=== PATIENT | female | born 1950 ===

== ENCOUNTER 2018-01-24 09:09 | Emergency (ER) | payer SELFPAY ==
[2018-01-24] MEDS ORDERED: Sodium Chloride 0.9% 1,000 ML IV ONE (10:26)
--- NOTE | 2018-01-24 10:27 | C.PDOC ---
History Of Present Illness 68yo female, originally from the [place] and visiting for 2 weeks, presents to ED complaining of 5 day left sided abdominal pain. Patient states the pain has been worsening and is worse on the left lower quadrant. She reports associated nausea and and normal bowel movements but with small amounts of stool. She denies any vomiting, diarrhea, fever, chills, dysuria, or bloody stools. She states she has a history of diverticulitis and 2 years ago had "ruptured colon" which needed surgery. She has no other medical complaints. Time Seen by Provider: 01/24/18 10:07 Chief Complaint (Nursing): Abdominal Pain History Per: Patient History/Exam Limitations: no limitations Onset/Duration Of Symptoms: Days (5) Current Symptoms Are (Timing): Still Present Location Of Pain/Discomfort: LUQ, LLQ Quality Of Discomfort: "Pain" Associated Symptoms: Nausea. denies: Fever, Chills, Vomiting, Diarrhea, Urinary Symptoms Additional History Per: Patient Abnormal Vaginal Bleeding: No Past Medical History Reviewed: Historical Data, Nursing Documentation, Vital Signs Vital Signs: Last Vital Signs Temp 98.2 F 01/24/18 13:39 Pulse 80 01/24/18 13:39 Resp 16 01/24/18 13:39 BP 142/80 01/24/18 13:39 Pulse Ox 99 01/24/18 13:39 - Medical History PMH: No Chronic Diseases Surgical History: No Surg Hx Family History: States: No Known Family Hx - Social History Hx Alcohol Use: No Hx Substance Use: No - Immunization History Hx Tetanus Toxoid Vaccination: No Hx Influenza Vaccination: No Review Of Systems Except As Marked, All Systems Reviewed And Found Negative. Constitutional: Negative for: Fever, Chills Gastrointestinal: Positive for: Nausea, Abdominal Pain. Negative for: Vomiting , Diarrhea, Hematochezia Genitourinary: Negative for: Dysuria Physical Exam - Physical Exam Appears: Non-toxic, No Acute Distress Skin: Normal Color, Warm, Dry Head: Atraumatic, Normacephalic Eye(s): bilateral: Normal Inspection Oral Mucosa: Moist Neck: Normal ROM, Supple Chest: Symmetrical Cardiovascular: Rhythm Regular Respiratory: Normal Breath Sounds Gastrointestinal/Abdominal: Soft, Tenderness (left upper and lower quadrant tenderness), No Mass, No Guarding, No Rebound, Other (large ventral surgical scar) Back: Normal Inspection Extremity: Normal ROM Neurological/Psych: Oriented x3 ED Course And Treatment - Laboratory Results Result Diagrams: 01/24/18 10:37 01/24/18 10:37 Lab Interpretation: No Acute Changes O2 Sat by Pulse Oximetry: 100 (RA) Pulse Ox Interpretation: Normal - CT Scan/US abdomen Other Rad Studies (CT/US): Read By Radiologist, Radiology Report Reviewed CT/US Interpretation: Accession No. : [id number]. Patient Name / ID : CHANDRIKA WORKMAN / [id number]. Exam Date : 01/24/2018 12:16:26 ( Approved ). Study Comment : Sex / Age : F / 68Y. Creator : Elizabeth Glass. Dictator : Avtar Valladares MD. Home Worker : Medical Technologist : Avtar Valladares MD. Approver2 : Report Date : 01/24/2018 12:24:57. My Comment : . PROCEDURE: CT Abdomen and Pelvis with contrast. HISTORY: LLQ abd pain. COMPARISON: None. TECHNIQUE: Following the intravenous administration of iodinated contrast material, a CT examination of the abdomen and pelvis performed from the domes of the diaphragms to the symphysis pubis with reformatted datasets provided not only axial but also sagittal and coronal planes. Oral contrast was not administered as per referring physician request. Contrast dose: Visipaque 320, 100 cc. Radiation dose: Total exam DLP = 600.09 mGy-cm. This CT exam was performed using one or more of the following dose reduction techniques: Automated exposure control, adjustment of the mA and/or kV according to patient size, and/or use of iterative reconstruction technique. FINDINGS: LOWER THORAX : Unremarkable. LIVER: Unremarkable. No gross lesion or ductal dilatation. GALLBLADDER AND BILE DUCTS: Gallbladder is quite distended but thin walled without radiodense cholelithiasis or pericholecystic fluid collection. Clinically correlate nevertheless. PANCREAS: Unremarkable. No gross lesion or ductal dilatation. SPLEEN: Unremarkable. ADRENALS: Unremarkable. No mass. KIDNEYS AND URETERS: There is bilateral hydronephrosis somewhat greater the right than left sides. This is apparently due to a 1.2 x 1.1 cm calculus obstructing the left ureteropelvic junction with a 6.7 x 5.4 mm calculus obstructing the junction of the middle and distal thirds of the right ureter. Mild right hydronephrosis results. Urinary bladder appears unremarkable. VASCULATURE: Unremarkable. No aortic aneurysm. BOWEL: Thumb was collapsed and poorly evaluated however there is prominence of the gastric campa, particularly the antrum which may reflect gastritis. Clinically correlate further. The bowel is not appear obstructed. No mesenteric edema is associated with the colon or small bowel with no bowel obstruction pattern appreciated. Anastomotic suture line is identified at the mid sigmoid colon which is otherwise unremarkable appearing but partially obscured by stool. Mild fecal loading is seen at the proximal to mid large-bowel. A small hernia is appreciate soda left lower quadrants probable colostomy reversal containing only mesenteric fat at this time. No bowel involvement. No colonic diverticular changes identified. APPENDIX: Normal appendix. PERITONEUM: Unremarkable. No free fluid. No free air. LYMPH NODES: Unremarkable. No enlarged lymph nodes. BLADDER: Please see renal section above. REPRODUCTIVE: Unremarkable. BONES: No acute fracture. OTHER FINDINGS: None. IMPRESSION: 1. Bilateral hydronephrosis is appreciated with a 6.7 mm calculus obstructing the distal right ureter and 1.2 cm calculus obstructing left ureteropelvic junction. 2. Segmental resection with unremarkable appearing anastomotic suture line at the sigmoid colon. No bowel obstruction, mesenteric edema or ascites. A small incisional hernia is is appreciated the left lower quadrant likely at colostomy reversal site. Clinically correlate. No bowel involvement. 3. No colonic diverticular changes. 4. Potential gastritis. Evaluation of stomach is compromised by lack of oral contrast and near complete collapse of the stomach. Medical Decision Making Medical Decision Making: Impression: abdominal pain Plan: -- Labs -- Urinalysis -- CT Abdomen/Pelvis w/ IV Contrast -- Morphine 4mg IV -- IV Fluids -- Reglan 10mg IV Progress: Labs reviewed with no leukcytosis or electrolyte abnormality. Urine has + nitrates, leukocytes. Will treat with Bactrim DS and urine culture sent to lab. Patient re-evaluated and reports feeling better. She has no fever and stable vital signs. Abdomen soft and non-distended. Patient informed of lab and CT findings. Patient stable for discharge with Rx Bactrim Disposition Counseled Patient/Family Regarding: Diagnosis, Need For Followup, Rx Given - Disposition Referrals: [facility] [Outside] [facility] [Outside] Disposition: HOME/ ROUTINE Disposition Time: 13:09 Condition: GOOD Additional Instructions: You have bladder infection and must take antibiotic twice a day follow up in the clinic Usted tiene infeccin de la vejiga y debe carlos antibiticos dos veces al da seguimiento en la clnica Prescriptions: Sulfamethoxazole/Trimethoprim [Bactrim DS 800 mg-160 mg] 1 tab PO BID #14 tab Instructions: Urinary Tract Infection, Adult (DC) Forms: [employer] (Faroese) Print Language: SYRIAC - POA Present On Arrival: None - Clinical Impression Clinical Impression: Cystitis, Abdominal pain - PA / PUBLIC WORKS TECHNICIAN / Resident Statement MD/DO has reviewed & agrees with the documentation as recorded. - Scribe Statement The provider has reviewed the documentation as recorded by the Scribe (La Mcarthur) Provider Attestation: All medical record entries made by the Scribe were at my direction and personally dictated by me. I have reviewed the chart and agree that the record accurately reflects my personal performance of the history, physical exam, medical decision making, and the department course for this patient. I have also personally directed, reviewed, and agree with the discharge instructions and disposition.
[2018-01-24 10:40] LABS: BASO # 0.1 K/uL (0.0-0.2); BASO % 1.2 % (0.0-2.0); EOS # 0.1 K/uL (0.0-0.7); EOS % 1.2 % (0.0-4.0); HEMOGLOBIN 13.3 g/dL (11.0-16.0); LYMPH # 1.7 K/uL (1.0-4.3); LYMPH % 37.5 % (20.0-40.0); MEAN CELL VOLUME 84.8 fL (81.0-99.0); MEAN CORPUSCULAR HEMOGLOBIN 29.8 pg (27.0-31.0); MEAN CORPUSCULAR HGB CONC 35.2 g/dL (33.0-37.0); MEAN PLATELET VOLUME 8.3 fL (7.2-11.7); MONO # 0.4 K/uL (0.0-0.8); MONO % 9.1 % (0.0-10.0); NEUT # 2.3 K/uL (1.8-7.0); RBC 4.46 Mil/uL (3.80-5.20); RED CELL DISTRIBUTION WIDTH 14.5 % (11.5-14.5); WHITE BLOOD COUNT 4.6 K/uL (4.8-10.8)
[2018-01-24] MEDS ORDERED: Morphine 4 MG/ML VIAL ONE (10:43)
[2018-01-24] MEDS ORDERED: Sodium Chloride 0.9% 1,000 ML ONE (10:43)
[2018-01-24 10:52] LABS: ALB/GLOB RATIO 1.2 (1.0-2.1); ALBUMIN 4.4 g/dL (3.5-5.0); ALT/SGPT 14 U/L (9-52); AST/SGOT 18 U/L (14-36); BLOOD UREA NITROGEN 23 mg/dL (7-17); CALCIUM 9.7 mg/dl (8.6-10.4); GFR AFRICAN-AMERICAN > 60; GFR NON-AFRICAN AMERICAN > 60; LIPASE 104 U/L (23-300)
[2018-01-24] MEDS ORDERED: Iodixanol 320 MG/ML 100 ML BOTTLE IV ONE (12:04)
[2018-01-24 12:43] LABS: SQUAMOUS EPITHIAL 19 /hpf (0-5); URINE BACTERIA RARE (<OCC); URINE BILIRUBIN NEGATIVE (NEGATIVE); URINE BLOOD 2+ (NEGATIVE); URINE CLARITY Hazy (Clear); URINE COLOR Yellow (YELLOW); URINE GLUCOSE (UA) NORMAL (Normal); URINE LEUKOCYTE ESTERASE 3+ Leu/uL (Negative); URINE PROTEIN 1+ mg/dL (NEGATIVE); URINE UROBILINOGEN NORMAL mg/dL (0.2-1.0)
--- NOTE | 2018-01-24 13:05 | CT ---
PROCEDURE: CT Abdomen and Pelvis with contrast HISTORY: LLQ abd pain COMPARISON: None. TECHNIQUE: Following the intravenous administration of iodinated contrast material, a CT examination of the abdomen and pelvis performed from the domes of the diaphragms to the symphysis pubis with reformatted datasets provided not only axial but also sagittal and coronal planes. Oral contrast was not administered as per referring physician request. Contrast dose: Visipaque 320, 100 cc Radiation dose: Total exam DLP = 600.09 mGy-cm. This CT exam was performed using one or more of the following dose reduction techniques: Automated exposure control, adjustment of the mA and/or kV according to patient size, and/or use of iterative reconstruction technique. FINDINGS: LOWER THORAX: Unremarkable. LIVER: Unremarkable. No gross lesion or ductal dilatation. GALLBLADDER AND BILE DUCTS: Gallbladder is quite distended but thin walled without radiodense cholelithiasis or pericholecystic fluid collection. Clinically correlate nevertheless. PANCREAS: Unremarkable. No gross lesion or ductal dilatation. SPLEEN: Unremarkable. ADRENALS: Unremarkable. No mass. KIDNEYS AND URETERS: There is bilateral hydronephrosis somewhat greater the right than left sides. This is apparently due to a 1.2 x 1.1 cm calculus obstructing the left ureteropelvic junction with a 6.7 x 5.4 mm calculus obstructing the junction of the middle and distal thirds of the right ureter. Mild right hydronephrosis results. Urinary bladder appears unremarkable. VASCULATURE: Unremarkable. No aortic aneurysm. BOWEL: Thumb was collapsed and poorly evaluated however there is prominence of the gastric campa, particularly the antrum which may reflect gastritis. Clinically correlate further. The bowel is not appear obstructed. No mesenteric edema is associated with the colon or small bowel with no bowel obstruction pattern appreciated. Anastomotic suture line is identified at the mid sigmoid colon which is otherwise unremarkable appearing but partially obscured by stool. Mild fecal loading is seen at the proximal to mid large-bowel. A small hernia is appreciate soda left lower quadrants probable colostomy reversal containing only mesenteric fat at this time. No bowel involvement. No colonic diverticular changes identified. APPENDIX: Normal appendix. PERITONEUM: Unremarkable. No free fluid. No free air. LYMPH NODES: Unremarkable. No enlarged lymph nodes. BLADDER: Please see renal section above. REPRODUCTIVE: Unremarkable. BONES: No acute fracture. OTHER FINDINGS: None. IMPRESSION: 1. Bilateral hydronephrosis is appreciated with a 6.7 mm calculus obstructing the distal right ureter and 1.2 cm calculus obstructing left ureteropelvic junction. 2. Segmental resection with unremarkable appearing anastomotic suture line at the sigmoid colon. No bowel obstruction, mesenteric edema or ascites. A small incisional hernia is is appreciated the left lower quadrant likely at colostomy reversal site. Clinically correlate. No bowel involvement. 3. No colonic diverticular changes. 4. Potential gastritis. Evaluation of stomach is compromised by lack of oral contrast and near complete collapse of the stomach.
[2018-01-24] MEDS ORDERED: Tmp-Smz 800 mg-160 mg DS Tab ONE (13:15)
[2018-01-24] MEDS ORDERED: Tmp-Smz 800 mg-160 mg DS Tab PO SCH (13:15)
[2018-01-24 13:41] VITALS: BP 142/80; PULSE 80; RESP 16; TEMP 98.2
[2018-01-24 15:51] VITALS: O2SAT 100
== END 2018-01-24 13:39 | disposition home or self-care (01) ==
LOC: C.ER 09:09
DX: N30.90 Cystitis, unspecified without hematuria (principal); R10.32 Left lower quadrant pain
CPT/HCPCS: 74177; 80053; 81001; 83690; 85025; 87086; 96361; 96374; 96375; 99285; J2270; J2765; J7030; Q9967

== ENCOUNTER 2018-03-11 14:44 | Inpatient (IN) | payer OTHER ==
[2018-03-11 14:55] VITALS: BMI 30.2
[2018-03-11] MEDS ORDERED: Iohexol 240 (50 ml) PO ONE (15:39)
--- NOTE | 2018-03-11 15:46 | C.PDOC ---
History Of Present Illness Pt is a 68 year old female patient with PMHx of kidney stones, HTN, hypothyroidism, TIA, DM, diverticulitis and PSHx of colon resection for the diverticulitis presents to the ER with c/o LLQ abdominal pain that radiates to the lower back. Patient states that the pain is sharp, intermittent, and is a 7/ 10 at the moment. Patient notes that eating and constipation exacerbate her pain. Patient denies nausea, vomiting, diarrhea and fever. Patient reports she is here on vacation from [facility]. PMD: In the [facility] Time Seen by Provider: 03/11/18 15:23 Chief Complaint (Nursing): Abdominal Pain History Per: Patient History/Exam Limitations: no limitations Location Of Pain/Discomfort: LLQ Associated Symptoms: Constipation (sometimes). denies: Fever, Nausea, Vomiting , Diarrhea Exacerbating Factors: Food, Other (constipation) Past Medical History Reviewed: Historical Data, Nursing Documentation, Vital Signs Vital Signs: Last Vital Signs Temp 98.0 F 03/11/18 14:54 Pulse 73 03/11/18 14:54 Resp 18 03/11/18 14:54 BP 93/64 L 03/11/18 14:54 Pulse Ox 100 03/11/18 18:10 - Medical History PMH: Diverticulitis, HTN, Hypothyroidism Other Surgeries: colon resection Family History: States: Diabetes - Social History Hx Tobacco Use: No Hx Alcohol Use: No Hx Substance Use: No - Immunization History Hx Tetanus Toxoid Vaccination: No Hx Influenza Vaccination: No Review Of Systems Except As Marked, All Systems Reviewed And Found Negative. Constitutional: Negative for: Fever Gastrointestinal: Positive for: Abdominal Pain (LLQ radiates to back), Constipation. Negative for: Nausea, Vomiting, Diarrhea Musculoskeletal: Positive for: Back Pain (lower back from LLQ pain) Physical Exam - Physical Exam Appears: Well, Non-toxic, No Acute Distress Skin: Normal Color, Warm, Dry, Other (+ surgical scars of abdomen) Head: Atraumatic, Normacephalic Eye(s): bilateral: Normal Inspection, EOMI Ear(s): Bilateral: Normal Nose: Normal Oral Mucosa: Moist Tongue: Normal Appearing Lips: Normal Appearing Neck: Normal ROM, Supple Lymphatic: Deferred Chest: Symmetrical, No Deformity Cardiovascular: Rhythm Regular Respiratory: Normal Breath Sounds, No Rales, No Rhonchi, No Wheezing Gastrointestinal/Abdominal: Bowel Sounds (slightly hyperactive), Soft, Tenderness (LLQ tenderness ), No Guarding, No Rebound, Other ((+) surgical scars ) Rectal: Deferred Back: No CVA Tenderness Extremity: Normal ROM (x4) Extremity: Bilateral: Atraumatic, Normal ROM Pulses: Left Radial: Normal, Right Radial: Normal Neurological/Psych: Oriented x3, Normal Speech, Normal Motor, Normal Sensation ED Course And Treatment - Laboratory Results Result Diagrams: 03/11/18 15:45 03/11/18 15:45 O2 Sat by Pulse Oximetry: 100 (RA) Pulse Ox Interpretation: Normal Medical Decision Making Medical Decision Making: Initial impression: LLQ pain Differential Diagnosis includes but is not limited to: diverticulitis, abdominal adhesions, pyelonephritis Initial Plan: -- EKG -- blood work -- Omnipaque -- pepcid -- toradol -- UA Progress Note(s): 5:39 PM - UA positive. Ceftriaxone ordered. Awaiting CT scan reading by radiology 6:15 PM - CT shows diverticulitis. Will admit. I endorsed case to Dr. Kevin Thomas (hospitalist) who advised to admit under Dr. George. Disposition Counseled Patient/Family Regarding: Studies Performed, Diagnosis - Disposition Disposition: HOSPITALIZED Disposition Time: 18:10 Condition: FAIR - POA Present On Arrival: None - Clinical Impression Clinical Impression: Diverticulitis, Pyelonephritis - Scribe Statement The provider has reviewed the documentation as recorded by the Ana Maria Sims Do Provider Attestation: All medical record entries made by the Morenitaibjuli were at my direction and personally dictated by me. I have reviewed the chart and agree that the record accurately reflects my personal performance of the history, physical exam, medical decision making, and the department course for this patient. I have also personally directed, reviewed, and agree with the discharge instructions and disposition. Decision To Admit - Pt Status Changed To: Hospital Disposition Of: Inpatient - Admit Certification Admit to Inpatient:: After my assessment, the patient will require hospitalization for at least two midnights. This is because of the severity of symptoms shown, intensity of services needed, and/or the medical risk in this patient being treated as an outpatient. - InPatient: Physician Admission Certification:: Pt with both pyelonephritis and diverticulitis and underlying diabetes (high risk factor). Will require IV abx - . Bed Request Type: Regular Admitting Physician: Jonathan George Patient Diagnosis: Diverticulitis, Pyelonephritis
[2018-03-11 15:49] LABS: BASO % 1.1 % (0.0-2.0); EOS # 0.1 K/uL (0.0-0.7); EOS % 1.4 % (0.0-4.0); HEMOGLOBIN 12.9 g/dL (11.0-16.0); LYMPH % 47.8 % (20.0-40.0); MEAN CELL VOLUME 87.6 fL (81.0-99.0); MEAN CORPUSCULAR HEMOGLOBIN 30.5 pg (27.0-31.0); MEAN CORPUSCULAR HGB CONC 34.8 g/dL (33.0-37.0); MEAN PLATELET VOLUME 8.3 fL (7.2-11.7); MONO # 0.3 K/uL (0.0-0.8); NEUT # 1.8 K/uL (1.8-7.0); NEUT % 42.7 % (50.0-75.0); NRBC % 0.1 % (0.0-2.0); RBC 4.24 Mil/uL (3.80-5.20); WHITE BLOOD COUNT 4.3 K/uL (4.8-10.8)
[2018-03-11] MEDS ORDERED: Iohexol 240 (50 ml) ONE (15:51)
[2018-03-11 15:57] LABS: INR 1.2; PROTHROMBIN TIME 12.6 SECONDS (9.7-12.2)
[2018-03-11 16:00] LABS: ALB/GLOB RATIO 1.3 (1.0-2.1); ALBUMIN 4.3 g/dL (3.5-5.0); ALT/SGPT 20 U/L (9-52); AST/SGOT 14 U/L (14-36); BLOOD UREA NITROGEN 22 mg/dL (7-17); CALCIUM 9.6 mg/dl (8.6-10.4); GFR AFRICAN-AMERICAN > 60; GFR NON-AFRICAN AMERICAN 55; LIPASE 117 U/L (23-300); SQUAMOUS EPITHIAL 1 /hpf (0-5); URINE BACTERIA MANY (<OCC); URINE BILIRUBIN NEGATIVE (NEGATIVE); URINE BLOOD 1+ (NEGATIVE); URINE CLARITY Hazy (Clear); URINE COLOR Yellow (YELLOW); URINE GLUCOSE (UA) NORMAL (Normal); URINE LEUKOCYTE ESTERASE 3+ Leu/uL (Negative); URINE PROTEIN 1+ mg/dL (NEGATIVE); URINE UROBILINOGEN NORMAL mg/dL (0.2-1.0); WBC CLUMPS FEW /hpf
[2018-03-11] MEDS ORDERED: cefTRIAXone IV 1 gm in Dextros 1 GM in Dextrose 5% In Water 50 ML IVPB STA (16:23)
[2018-03-11] MEDS ORDERED: Iodixanol 320 MG/ML 100 ML BOTTLE IV ONE (16:29)
[2018-03-11] MEDS ORDERED: cefTRIAXone IV 1 gm in Dextros 50 ML IVPB ONE (16:33)
[2018-03-11] MEDS ORDERED: Sodium Chloride 0.9% 1,000 ML IV ONE (17:40)
--- NOTE | 2018-03-11 17:57 | CT ---
Date of service: 03/11/2018 PROCEDURE: CT Abdomen and Pelvis with contrast HISTORY: LLQ Pain;hx diverticulitis colon colon resection COMPARISON: Comparison is made to the previous study dated 01/24/2018 TECHNIQUE: Contrast dose: 100 mL of Visipaque 320. Axial and reformatted coronal and sagittal CT images of the abdomen and pelvis were obtained after IV and oral contrast administration. Radiation dose: Total exam DLP = 519.21 mGy-cm. This CT exam was performed using one or more of the following dose reduction techniques: Automated exposure control, adjustment of the mA and/or kV according to patient size, and/or use of iterative reconstruction technique. FINDINGS: LOWER THORAX: No evidence of acute pathology LIVER: Unremarkable. No gross lesion or ductal dilatation. GALLBLADDER AND BILE DUCTS: No evidence of acute cholecystitis PANCREAS: Unremarkable. No gross lesion or ductal dilatation. SPLEEN: Unremarkable. ADRENALS: Unremarkable. No mass. KIDNEYS AND URETERS: Again seen is a 11 millimeter calculus at the left kidney pelvis associated with mild hydronephrosis. Interval resolving of the previously seen right hydronephrosis secondary to distal right ureter stone since the previous exam. VASCULATURE: Unremarkable. No aortic aneurysm. BOWEL: Unremarkable. No obstruction. NoThere is mild inflammatory changes adjacent to the proximal sigmoid colon suspicious for diverticulitis. No evidence of abscess formation. Large bowel anastomosis noted in the distal portion of the sigmoid. No evidence of high-grade bowel obstruction. There is left lateral abdominal wall ventral hernia contains small bowel loop without evidence of bowel obstruction or incarceration. APPENDIX: No evidence of appendicitis. PERITONEUM: Unremarkable. No free fluid. No free air. LYMPH NODES: Unremarkable. No enlarged lymph nodes. BLADDER: Unremarkable. REPRODUCTIVE: Unremarkable. BONES: No acute fracture. OTHER FINDINGS: None. IMPRESSION: Suspicious for mild diverticulitis at the proximal portion of the sigmoid colon in the left lower abdomen. Interval increase in the size of the left lateral abdominal wall ventral hernia contains short segment of small bowel loop since the previous exam without evidence of bowel incarceration or obstruction. Interval resolving of the previously seen moderate right hydronephrosis secondary to distal right ureter stone. 11 millimeters stone in the left renal pelvis again noted associated with [id number] left hydronephrosis.
[2018-03-11] MEDS ORDERED: metroNIDAZOLE IV 500 mg/100 ml 500 MG/100 ML BAG IV ONE (18:04)
[2018-03-11] MEDS ORDERED: metroNIDAZOLE IV 500 mg/100 ml 500 MG/100 ML BAG ONE (18:12)
[2018-03-11] MEDS: Meropenem 1 GM in Sodium Chloride 0.9% 100 ML IVPB SCH (19:30)
[2018-03-11] MEDS: Pantoprazole 40 mg EC Tab PO SCH (21:44)
--- NOTE | 2018-03-11 22:58 | CP.PCM.HP ---
<[place] Y - Last Filed: 03/11/18 23:08> History of Present Illness - History of Present Illness History of Present Illness: cc: abdominal pain Ms. Vidal is a 68 year old female PMH hypertension, hypothyroid, diverticulitis with colon resection complaining today of left lower quadrant pain x1 week. She began feeling the pain 1 week ago as an intermittent dull pain. It worsened to the point where she was bed bound yesterday, and then worsened at night when it became sharp. It's a squeezing pain the radiates to the back, worse after eating, and better if she applies pressure. Episodes last 5-10 minutes with varying number of episodes per day which she rates it 8/10 at its worst. She arrived from the [facility] on 12/28/17 and was seen at the [facility] ED 01/24/18 for a UTI which grew out E. Coli; she finished the week long course of Bactrim she was given. She admits chills, weakness, fatigue, chest pain, tachycardia, nausea during episodes of pain. She also notes that she has to strain in order to make bowel movements happen, although she admits to them in regular frequency. Denies fever, headache, dizziness, lightheadedness , changes in vision or hearing, sore throat, dysphagia, odynophagia, shortness of breath, diarrhea, back pain, swelling of hands or feet, changes in weight, changes in appetite. PMH: HTN, hypothyroid, diverticulitis with colon resection, nephrolithiasis Home Meds: Candesartan 32mg po daily, Levothyroxine 88mcg po daily, Levaquin 75mg po daily Allergies: NKA PSxH: colon resection 2015, bladder sling 1995, hemorrhoidectomy 1995 FamHx: Dad HepC- at 49, Mom PNA- at 81, Brother HepC-alive SocialHx: smokes 6-7 cigarettes/day, quit alcohol 10 years ago, denies illicit drugs. Lives at home with niece and her daughters, retired Full Code Niece: Camille Richardson Present on Admission - Present on Admission Any Indicators Present on Admission: No Review of Systems - Constitutional Constitutional: Chills, Fatigue, Headache, Lethargy, Weakness. absent: Anorexia , Daytime Sleepiness, Excessive Sweating, Fever, Frequent Falls, Increased Appetite, Snoring, Weight Gain, Weight Loss - EENT Eyes: absent: Blurred Vision, Change in Vision, Diplopia, Discharge, Irritation , Pain, Sees Flashes, Spots in Vision, Loss of Vision Ears: absent: Decreased Hearing, Tinnitus, Disequilibrium, Dizziness Nose/Mouth/Throat: absent: Nasal Congestion, Nasal Discharge, Dysphagia, Halitosis, Hoarsness, Mouth Pain, Odynophagia, Sore Throat, Throat Swelling - Cardiovascular Cardiovascular: Palpitations, Rapid Heart Rate. absent: Chest Pain, Chest Pain with Activity, Claudication, Diaphoresis, Dyspnea, Pain Radiating to Arm/Neck/ Jaw, Leg Edema, Lightheadedness, Pedal Edema, Radiating Pain, Syncope - Respiratory Respiratory: absent: Cough, Dyspnea, Wheezing, Chest Congestion - Gastrointestinal Gastrointestinal: Abdominal Pain, Constipation, Nausea. absent: Belching, Bloating, Change in Bowel Habits, Change in Stool Character, Coffee Ground Emesis, Cramping, Diarrhea, Dyspepsia, Dysphagia, Excessive Flatus, Heartburn, Hematemesis, Hematochezia, Melena, Odynophagia, Vomiting - Genitourinary Genitourinary: Urinary Frequency, Hx Renal/Bladder Calculi. absent: Difficulty Urinating, Dysuria, Flank Pain, Hematuria, Pyuria, Urinary Incontinence, Urinary Hesitance, Urinary Urgency - Musculoskeletal Musculoskeletal: Numbness, Tingling. absent: Arthralgias, Joint Swelling, Radiating Pain into Limb, Stiffness - Integumentary Integumentary: absent: Change in Pigmentation, Dry Skin, Rash, Sores, Swelling - Neurological Neurological: Numbness, Weakness. absent: Abnormal Hearing, Abnormal Movements , Convulsions, Disequilibrium, Dizziness, Syncope, Tingling - Psychiatric Psychiatric: absent: Confusion, Depression, Mood Swings - Endocrine Endocrine: absent: Cold Intolorance, Deepening of Voice, Heat Intolorance, Polydipsia, Polyphagia, Polyuria - Hematologic/Lymphatic Hematologic: absent: Easy Bleeding, Easy Bruising Past Patient History - Past Medical History & Family History Pertinent Family History: dad and brother HepC, mom PNA - Past Social History Smoking Status: Light Smoker < 10 Cigarettes Daily Alcohol: None Drugs: Denies - CARDIAC Hx Hypertension: Yes - PULMONARY Hx Respiratory Disorders: No - NEUROLOGICAL Hx Neurological Disorder: No - ENDOCRINE/METABOLIC Hx Hypothyroidism: Yes - MUSCULOSKELETAL/RHEUMATOLOGICAL Hx Falls: No - GASTROINTESTINAL Hx Diverticulitis: Yes - PSYCHIATRIC Hx Substance Use: No - SURGICAL HISTORY Hx Surgeries: Yes Other/Comment: Colon surgery 2 years ago - ANESTHESIA Hx Anesthesia: Yes Hx Anesthesia Reactions: No Meds Allergies/Adverse Reactions: Allergies Allergy/AdvReac Type Severity Reaction Status Date / Time No Known Allergies Allergy Verified 03/11/18 14:52 Physical Exam - Constitutional Appears: Non-toxic, No Acute Distress - Head Exam Head Exam: ATRAUMATIC, NORMOCEPHALIC - Eye Exam Eye Exam: EOMI, Normal appearance, PERRL - ENT Exam ENT Exam: Mucous Membranes Moist, Normal Exam - Respiratory Exam Respiratory Exam: Clear to Auscultation Bilateral, NORMAL BREATHING PATTERN. absent: Rales, Rhonchi, Wheezes - Cardiovascular Exam Cardiovascular Exam: REGULAR RHYTHM, +S1, +S2. absent: Gallop, Rubs, Systolic Murmur - GI/Abdominal Exam GI & Abdominal Exam: Hernia, Hyperactive Bowel Sounds, Normal Bowel Sounds, Soft. absent: Firm, Guarding, Tenderness Additional comments: midline scar from colectomy, umbilical hernia, scar from colostomy bag placement - Exam Exam: absent: Uretheral Discharge, Bladder Distension - Extremities Exam Extremities exam: Positive for: normal capillary refill, normal inspection, pedal pulses present. Negative for: joint swelling Additional comments: right IV AC peripheral pulses present (radial, PT, DP) - Back Exam Back exam: NORMAL INSPECTION. absent: CVA tenderness (L), CVA tenderness (R) - Neurological Exam Neurological exam: Alert, CN II-XII Intact, Oriented x3, Reflexes Normal - Psychiatric Exam Psychiatric exam: Normal Affect, Normal Mood - Skin Skin Exam: Dry, Intact, Normal Color, Warm Results - Vital Signs Recent Vital Signs: Last Vital Signs Temp 98 F 03/11/18 18:39 Pulse 68 03/11/18 18:39 Resp 18 03/11/18 18:39 BP 111/72 03/11/18 18:39 Pulse Ox 98 03/11/18 18:39 - Labs Result Diagrams: 03/11/18 15:45 03/11/18 15:45 Labs: Laboratory Results - last 24 hr 03/11/18 03/11/18 03/11/18 15:45 15:45 15:45 WBC 4.3 L RBC 4.24 Hgb 12.9 Hct 37.2 MCV 87.6 D MCH 30.5 MCHC 34.8 RDW 14.0 Plt Count 229 MPV 8.3 Neut % (Auto) 42.7 L Lymph % (Auto) 47.8 H [place] % (Auto) 7.0 Eos % (Auto) 1.4 Baso % (Auto) 1.1 Neut # (Auto) 1.8 Lymph # (Auto) 2.0 [place] # (Auto) 0.3 Eos # (Auto) 0.1 Baso # (Auto) 0.0 PT INR APTT Sodium 143 Potassium 4.3 Chloride 103 Carbon Dioxide 29 Anion Gap 16 BUN 22 H Creatinine 1.0 Est GFR ( Amer) > 60 Est GFR (Non-Af Amer) 55 Random Glucose 79 Calcium 9.6 Total Bilirubin 0.5 AST 14 D ALT 20 Alkaline Phosphatase 71 Troponin I < 0.0120 Total Protein 7.8 Albumin 4.3 Globulin 3.4 Albumin/Globulin Ratio 1.3 Lipase 117 Urine Color Yellow Urine Clarity Hazy Urine pH 5.0 Ur Specific [place] 1.018 Urine Protein 1+ H Urine Glucose (UA) Normal Urine Ketones Negative Urine Blood 1+ H Urine Nitrate Positive H Urine Bilirubin Negative Urine Urobilinogen Normal Ur Leukocyte Esterase 3+ H Urine WBC (Auto) 640 H Urine RBC (Auto) 38 H Urine WBC Clumps (Auto) Few H Ur Squamous Epith Cells 1 Urine Bacteria Many H 03/11/18 15:45 WBC RBC Hgb Hct MCV MCH MCHC RDW Plt Count MPV Neut % (Auto) Lymph % (Auto) [place] % (Auto) Eos % (Auto) Baso % (Auto) Neut # (Auto) Lymph # (Auto) [place] # (Auto) Eos # (Auto) Baso # (Auto) PT 12.6 H INR 1.2 APTT 34 Sodium Potassium Chloride Carbon Dioxide Anion Gap BUN Creatinine Est GFR ( Amer) Est GFR (Non-Af Amer) Random Glucose Calcium Total Bilirubin AST ALT Alkaline Phosphatase Troponin I Total Protein Albumin Globulin Albumin/Globulin Ratio Lipase Urine Color Urine Clarity Urine pH Ur Specific [place] Urine Protein Urine Glucose (UA) Urine Ketones Urine Blood Urine Nitrate Urine Bilirubin Urine Urobilinogen Ur Leukocyte Esterase Urine WBC (Auto) Urine RBC (Auto) Urine WBC Clumps (Auto) Ur Squamous Epith Cells Urine Bacteria Assessment & Plan - Assessment and Plan (Free Text) Plan: 1) Abdominal Pain diverticulitis vs. pyelonephritis vs. nephrolithiasis UA (03/11) protein 1+, blood 1+, nitrate positive, LE 3+, WBC 640, RBC 38, bacteria many Urine culture (03/11) collected at same time as UA, possibly contaminated: f/u Urine culture-cath (03/11) ordered: f/u Blood culture (03/11) collected: f/u Lipase: [address] Abdomen/Pelvis with Contrast (03/11) suspicious for mild diverticulitis, left lateral abdominal wall ventral hernia containing short segment of small bowel without evidence of bowel incarceration or obstruction, 11mm stone in the left renal pelvis with mild-mod hydronephrosis, resolving right hydronephrosis 2/2 distal right ureter stone. Physical exam findings unequivocal. Not complaining of any pain at the moment Hold pain medication to localize Meropenem 1gm IVPB q8 (started 03/11 day 1) - chosen because of sensitivities from previous admission, good coverage for both diverticulitis or pyelonephritis , d/c per cultures Zofran 4mg IVP q6h prn NS @ 100mls/hr 2) Nephrolithiasis CT Abdomen/Pelvis with Contrast (03/11) suspicious for mild diverticulitis, left lateral abdominal wall ventral hernia containing short segment of small bowel without evidence of bowel incarceration or obstruction, 11mm stone in the left renal pelvis with mild-mod hydronephrosis, resolving right hydronephrosis 2/2 distal right ureter stone. Patient was unable to afford lithotripsy procedure during previous episodes in the [place]. States she has had stones bilaterally. Urology consulted: Dr. Casper - help appreciated - f/u recs for lithotripsy 3) Hx Hypertension home Candesartan 32mg po daily Trop I neg for ACS 4) Hx Hypothyroid home Synthroid 88mcg po daily 5) Tobacco Abuse Nicotine Patch TD daily Educated on cessation 6) Prophylaxis Heparin 5000u sc q8 Protonix 40mg po daily Florastor 250mg po bid Consider PEG if still complaining of straining for BM - Date & Time Date: 03/11/18 Time: 20:10 <Jonathan George P - Last Filed: 03/12/18 07:34> Results - Vital Signs Recent Vital Signs: Last Vital Signs Temp 97.6 F 03/12/18 05:06 Pulse 57 L 03/12/18 05:06 Resp 96 H 03/12/18 05:06 BP 102/63 03/12/18 05:06 Pulse Ox 98 03/11/18 18:39 - Labs Result Diagrams: 03/11/18 15:45 03/11/18 15:45 Labs: Laboratory Results - last 24 hr 03/11/18 03/11/18 03/11/18 15:45 15:45 15:45 WBC 4.3 L RBC 4.24 Hgb 12.9 Hct 37.2 MCV 87.6 D MCH 30.5 MCHC 34.8 RDW 14.0 Plt Count 229 MPV 8.3 Neut % (Auto) 42.7 L Lymph % (Auto) 47.8 H [place] % (Auto) 7.0 Eos % (Auto) 1.4 Baso % (Auto) 1.1 Neut # (Auto) 1.8 Lymph # (Auto) 2.0 [place] # (Auto) 0.3 Eos # (Auto) 0.1 Baso # (Auto) 0.0 PT INR APTT Sodium 143 Potassium 4.3 Chloride 103 Carbon Dioxide 29 Anion Gap 16 BUN 22 H Creatinine 1.0 Est GFR ( Amer) > 60 Est GFR (Non-Af Amer) 55 Random Glucose 79 Calcium 9.6 Total Bilirubin 0.5 AST 14 D ALT 20 Alkaline Phosphatase 71 Troponin I < 0.0120 Total Protein 7.8 Albumin 4.3 Globulin 3.4 Albumin/Globulin Ratio 1.3 Lipase 117 Urine Color Yellow Urine Clarity Hazy Urine pH 5.0 Ur Specific [place] 1.018 Urine Protein 1+ H Urine Glucose (UA) Normal Urine Ketones Negative Urine Blood 1+ H Urine Nitrate Positive H Urine Bilirubin Negative Urine Urobilinogen Normal Ur Leukocyte Esterase 3+ H Urine WBC (Auto) 640 H Urine RBC (Auto) 38 H Urine WBC Clumps (Auto) Few H Ur Squamous Epith Cells 1 Urine Bacteria Many H 03/11/18 15:45 WBC RBC Hgb Hct MCV MCH MCHC RDW Plt Count MPV Neut % (Auto) Lymph % (Auto) [place] % (Auto) Eos % (Auto) Baso % (Auto) Neut # (Auto) Lymph # (Auto) [place] # (Auto) Eos # (Auto) Baso # (Auto) PT 12.6 H INR 1.2 APTT 34 Sodium Potassium Chloride Carbon Dioxide Anion Gap BUN Creatinine Est GFR ( Amer) Est GFR (Non-Af Amer) Random Glucose Calcium Total Bilirubin AST ALT Alkaline Phosphatase Troponin I Total Protein Albumin Globulin Albumin/Globulin Ratio Lipase Urine Color Urine Clarity Urine pH Ur Specific [place] Urine Protein Urine Glucose (UA) Urine Ketones Urine Blood Urine Nitrate Urine Bilirubin Urine Urobilinogen Ur Leukocyte Esterase Urine WBC (Auto) Urine RBC (Auto) Urine WBC Clumps (Auto) Ur Squamous Epith Cells Urine Bacteria Attending/Attestation - Attestation I have personally seen and examined this patient.: Yes I have fully participated in the care of the patient.: Yes I have reviewed all pertinent clinical information: Yes Notes (Text): 03/12/18 07:25 Patient came with vague left side abd pain, at time of exam no abd tenderness or no CVA tenderness, patient has been afebrile, not toxic, no h/o nausea/ vomiting, mentioned wanted to take care of the left renal calculus that she has H/o left colonic resection, colostomy and reversal for diverticulitis, H/o chronic left renal pelvis calculus, with some chronic hydro, non obstructing calculus, prior urine culture had Ecoli ESBL +, Urine sample + nitrite, wbc, bact, but voided urine, no suprpubic/CVA/Flank discomfort, ordered urine straight cath sample to get good sample, patient may still not needed to be treated but will give info on colonized bacteria. Plan Straight cath sample ua and culture Procalcitonin Urology f/u for suggesting treatment for calculus See orders for detail.
[2018-03-12] MEDS: Meropenem 1 GM in Sodium Chloride 0.9% 100 ML IVPB SCH (02:34)
[2018-03-12] MEDS: Levothyroxine 88 MCG TAB PO SCH (07:00)
[2018-03-12 07:36] LABS: BASO % 0.7 % (0.0-2.0); EOS # 0.1 K/uL (0.0-0.7); EOS % 1.8 % (0.0-4.0); HEMOGLOBIN 12.1 g/dL (11.0-16.0); LYMPH % 59.5 % (20.0-40.0); MEAN CELL VOLUME 87.2 fL (81.0-99.0); MEAN CORPUSCULAR HEMOGLOBIN 29.9 pg (27.0-31.0); MEAN CORPUSCULAR HGB CONC 34.2 g/dL (33.0-37.0); MEAN PLATELET VOLUME 8.6 fL (7.2-11.7); MONO # 0.3 K/uL (0.0-0.8); MONO % 7.9 % (0.0-10.0); NEUT % 30.1 % (50.0-75.0); NRBC % 0.2 % (0.0-2.0); RBC 4.06 Mil/uL (3.80-5.20); RED CELL DISTRIBUTION WIDTH 14.5 % (11.5-14.5); WHITE BLOOD COUNT 3.4 K/uL (4.8-10.8)
--- NOTE | 2018-03-12 07:51 | CP.PCM.PN ---
Subjective - Date & Time of Evaluation Date of Evaluation: 03/12/18 Time of Evaluation: 07:51 - Subjective Subjective: PGY-[address] Jad Merino Patient is seen and examined sitting in chair. Patient reports no acute events overnight. Patient says she does not feel abdominal pain anymore as she felt it in the last days. Patient reports being able to stand, eat and go to the bathroom ok. Patient says she has trouble going to sleep. Patient denies fevers , chills, sob, chest pain, nausea, vomiting, diarrhea or constipation. Objective - Vital Signs/Intake and Output Vital Signs (last 24 hours): Temp Pulse Resp BP Pulse Ox 97.6 F 57 L 96 H 102/63 98 03/12/18 05:06 03/12/18 05:06 03/12/18 05:06 03/12/18 05:06 03/11/18 18:39 - Medications Medications: Current Medications Heparin Sodium (Porcine) (Heparin) 5,000 units SC Q8 [facility] Last Admin: 03/12/18 06:00 Dose: 5,000 units Levothyroxine Sodium (Synthroid) 88 mcg PO DAILY@0630 [facility] Losartan Potassium (Cozaar) 100 mg PO DAILY [facility] Nicotine (Nicoderm Cq) 1 patch TD DAILY [facility] Ondansetron HCl (Zofran Inj) 4 mg IVP Q6H PRN PRN Reason: Nausea/Vomiting Pantoprazole Sodium (Protonix Ec Tab) 40 mg PO Q24H [facility] Last Admin: 03/11/18 21:44 Dose: Not Given Saccharomyces Boulardii (Florastor) 250 mg PO BID [facility] - Labs Labs: 03/12/18 07:16 03/11/18 15:45 PT 12.6 SECONDS (9.7-12.2) H 03/11/18 15:45 INR 1.2 03/11/18 15:45 APTT 34 SECONDS (21-34) 03/11/18 15:45 - Constitutional Appears: Well, Non-toxic, No Acute Distress - Head Exam Head Exam: ATRAUMATIC, NORMAL INSPECTION, NORMOCEPHALIC - Eye Exam Eye Exam: EOMI, Normal appearance, PERRL Pupil Exam: NORMAL ACCOMODATION - ENT Exam ENT Exam: Mucous Membranes Moist, Normal Exam - Neck Exam Neck Exam: Full ROM, Normal Inspection - Respiratory Exam Respiratory Exam: Clear to Ausculation Bilateral, NORMAL BREATHING PATTERN. absent: Rales, Rhonchi, Wheezes - Cardiovascular Exam Cardiovascular Exam: REGULAR RHYTHM, +S1, +S2 - GI/Abdominal Exam GI & Abdominal Exam: Soft, Normal Bowel Sounds. absent: Guarding, Tenderness - Extremities Exam Extremities Exam: Full ROM, Normal Capillary Refill, Normal Inspection - Back Exam Back Exam: Full ROM, NORMAL INSPECTION. absent: paraspinal tenderness, tenderness, vertebral tenderness - Neurological Exam Neurological Exam: Alert, Awake, Normal Gait, Oriented x3 - Psychiatric Exam Psychiatric exam: Normal Affect, Normal Mood - Skin Skin Exam: Intact, Normal Color, Warm Assessment and Plan - Assessment and Plan (Free Text) Plan: 1) Abdominal Pain Not complaining of any pain at the moment. Reports the pain is not coming from incision site from past surgical procedure. pain most likely from dislodging UA (03/11) protein 1+, blood 1+, nitrate positive, LE 3+, WBC 640, RBC 38, bacteria many Urine culture (03/11) collected at same time as UA, possibly contaminated: f/u Urine culture-cath (03/11) ordered: f/u Blood culture (03/11) collected: f/u Lipase: [address] Abdomen/Pelvis with Contrast (03/11) suspicious for mild diverticulitis, left lateral abdominal wall ventral hernia containing short segment of small bowel without evidence of bowel incarceration or obstruction, 11mm stone in the left renal pelvis with mild-mod hydronephrosis, resolving right hydronephrosis 2/2 distal right ureter stone. Hold pain medication to localize Meropenem 1gm IVPB q8 (started 03/11 day 1) - chosen because of sensitivities from previous admission, good coverage for both diverticulitis or pyelonephritis , d/c per cultures Zofran 4mg IVP q6h prn NS @ 100mls/hr 2) Nephrolithiasis CT Abdomen/Pelvis with Contrast (03/11) suspicious for mild diverticulitis, left lateral abdominal wall ventral hernia containing short segment of small bowel without evidence of bowel incarceration or obstruction, 11mm stone in the left renal pelvis with mild-mod hydronephrosis, resolving right hydronephrosis 2/2 distal right ureter stone. Patient was unable to afford lithotripsy procedure during previous episodes in the [place]. States she has had stones bilaterally. Urology consulted: Dr. Casper - follow recs 3) Hx Hypertension home Candesartan 32mg po daily Trop I neg for ACS 4) Hx Hypothyroid home Synthroid 88mcg po daily 5) Tobacco Abuse Nicotine Patch TD daily Educated on cessation 6) Prophylaxis Heparin 5000u sc q8 Protonix 40mg po daily Florastor 250mg po bid Consider PEG if still complaining of straining for BM Plan discussed with Dr Jad Correia, PGY-1
[2018-03-12 08:21] LABS: ALB/GLOB RATIO 1.2 (1.0-2.1); ALBUMIN 3.6 g/dL (3.5-5.0); ALT/SGPT 26 U/L (9-52); AST/SGOT 16 U/L (14-36); BLOOD UREA NITROGEN 21 mg/dL (7-17); CALCIUM 9.1 mg/dl (8.6-10.4); GFR AFRICAN-AMERICAN > 60; GFR NON-AFRICAN AMERICAN > 60
[2018-03-12 08:24] LABS: SQUAMOUS EPITHIAL < 1 /hpf (0-5); URINE BACTERIA OCC (<OCC); URINE BILIRUBIN NEGATIVE (NEGATIVE); URINE BLOOD NEGATIVE (NEGATIVE); URINE CLARITY Clear (Clear); URINE COLOR Straw (YELLOW); URINE GLUCOSE (UA) NORMAL (Normal); URINE LEUKOCYTE ESTERASE 3+ Leu/uL (Negative); URINE PROTEIN NEGATIVE (NEGATIVE); URINE UROBILINOGEN NORMAL mg/dL (0.2-1.0)
[2018-03-12] MEDS: Saccharomyces Boulardi 250 mg Cap PO SCH ×2 (09:27→18:12)
[2018-03-12] MEDS: Pantoprazole 40 mg EC Tab PO SCH (18:12)
--- NOTE | 2018-03-13 02:32 | CON ---
DATE: 03/12/2018 COMPREHENSIVE UROLOGIC CONSULTATION TIME OF CONSULTATION: Roughly 3:30 p.m. BRIEF HISTORY: The patient is a 68-year-old female from [facility] with a past medical history of hypertension, hypothyroidism, and diverticulitis, status post colon resection about 7 months ago with this pathology who now presents with history of one week of left lower quadrant pain. Abdominopelvic CT done on 03/11/2018 showed mild adjacent inflammatory changes to the proximal sigmoid colon, suspicious for diverticulitis. She also has again seen an 11-mm calculus in the left renal pelvis, associated with mild hydronephrosis and interval resolving of the previously seen right hydronephrosis secondary to a distal right ureteral stone since the previous exam. The patient currently at this hour is very very comfortable. No complaint of any pain and wants to go home. She has been treated with IV Rocephin during this hospitalization with complete resolution of her symptoms. She was also on Protonix and famotidine and Pepcid during this hospitalization. She denies any family history of any kidney stones or kidney disease, and no family history of any cancer, and currently at this time, she has no history of any cancer. She voids with her usual normal urinary stream with a large amount of urine. She has no dysuria, gross hematuria, renal colic, and at this time resolution of her abdominal left lower quadrant pain, on IV antibiotics. SOCIAL HISTORY: She stopped smoking tobacco and alcohol use more than 12 years ago. ALLERGIES: SHE HAS NO KNOWN ALLERGIES TO ANY MEDICATIONS. PHYSICAL EXAMINATION: VITAL SIGNS: Her vital signs today on 03/12/2018 shows a temperature of 98.5, pulse rate of 57, blood pressure 117/69, respiratory rate 20, and O2 sat on room air 96%. GENERAL: She is a well-developed, well-nourished obese female. She is alert and she is oriented. HEENT: Grossly within normal limits. NECK: Supple. Thyroid not palpable. ABDOMEN: Soft, not distended, nontender. No CVA tenderness. No suprapubic tenderness. EXTREMITIES: She has full range of motion of both upper and lower extremities. LABORATORY EVALUATION: Today on 03/12/2018 shows a WBC count of 3.4; hemoglobin of 12.1; and hematocrit of 35.4; platelet count was 205,000. Coag profile on 03/11/2018 showed a PT of 12.6, INR of 1.2, and a PTT of 34. Her chem profile shows a sodium of 144, potassium 4.4, chloride 106, CO2 of 28, BUN and creatinine 21 and 0.9 respectively with a GFR of greater than 60, random glucose is 88, calcium 9.1. Total bilirubin 0.5, AST 16, ALT 26, alkaline phosphatase 75. TSH was 0.53. Urinalysis today on 03/12/2018 shows a straw colored urine, clarity was clear, pH 7, specific gravity 1.012, protein negative, glucose normal. Ketones, blood, nitrite, urine bilirubin all negative. Urobilinogen is normal. There are 3+ leukocytes in the urine and 15 wbc's with 3 rbc's per high power field. Occasional bacteria. Microbiology shows a urine C and S positive for gram negative rods indicating a UTI. The patient should be sent home on oral antibiotics for treatment of this UTI. DIAGNOSTIC IMPRESSION: 1. Left 11 mm renal pelvic kidney stone. 2. Urinary tract infection. PLAN: She could be seen in the office followup in two weeks for followup of her kidney stone and UTI. Alcon Casper MD [email or web address]
[2018-03-13] MEDS: Levothyroxine 88 MCG TAB PO SCH (05:44)
[2018-03-13 06:50] LABS: ALB/GLOB RATIO 1.2 (1.0-2.1); ALBUMIN 4.3 g/dL (3.5-5.0); ALT/SGPT 22 U/L (9-52); AST/SGOT 17 U/L (14-36); BLOOD UREA NITROGEN 23 mg/dL (7-17); CALCIUM 9.8 mg/dl (8.6-10.4); GFR AFRICAN-AMERICAN > 60; GFR NON-AFRICAN AMERICAN > 60
[2018-03-13 07:25] LABS: BASO % 0.5 % (0.0-2.0); EOS # 0.1 K/uL (0.0-0.7); EOS % 1.9 % (0.0-4.0); HEMOGLOBIN 13.2 g/dL (11.0-16.0); LYMPH # 2.6 K/uL (1.0-4.3); LYMPH % 56.5 % (20.0-40.0); MEAN CORPUSCULAR HEMOGLOBIN 30.2 pg (27.0-31.0); MEAN CORPUSCULAR HGB CONC 34.3 g/dL (33.0-37.0); MEAN PLATELET VOLUME 8.8 fL (7.2-11.7); MONO # 0.3 K/uL (0.0-0.8); MONO % 6.7 % (0.0-10.0); NEUT # 1.6 K/uL (1.8-7.0); NEUT % 34.4 % (50.0-75.0); NRBC % 0.2 % (0.0-2.0); RBC 4.39 Mil/uL (3.80-5.20); RED CELL DISTRIBUTION WIDTH 14.5 % (11.5-14.5); WHITE BLOOD COUNT 4.7 K/uL (4.8-10.8)
--- NOTE | 2018-03-13 08:18 | CP.PCM.PN ---
<Humaira Bay - Last Filed: 03/13/18 20:20> Subjective - Date & Time of Evaluation Date of Evaluation: 03/13/18 Time of Evaluation: 11:45 - Subjective Subjective: PGY-1 Medicine Progress Note Patient seen and examined at bedside. Patient complains of pain localized to the left lower quadrant abdominal pain and reports suprapubic tenderness. Patient is visiting from [facility]. Patient is anxious that she has to stay in hospital for treatment because it limits the time she was vacationing to see [facility]. Patient denies dysuria or urgency. Patient denies chest pain, sob, nausea/vomiting, constipation or diarrhea. Objective - Vital Signs/Intake and Output Vital Signs (last 24 hours): Temp Pulse Resp BP Pulse Ox 98.2 F 90 20 110/70 98 03/13/18 07:00 03/13/18 07:00 03/13/18 07:00 03/13/18 07:00 03/13/18 07:00 Intake and Output: 03/13/18 03/13/18 06:59 18:59 Intake Total 300 100 Balance 300 100 - Medications Medications: Current Medications Heparin Sodium (Porcine) (Heparin) 5,000 units SC Q8 [facility] Last Admin: 03/13/18 05:44 Dose: 5,000 units Levothyroxine Sodium (Synthroid) 88 mcg PO DAILY@0630 [facility] Last Admin: 03/13/18 05:44 Dose: 88 mcg Losartan Potassium (Cozaar) 100 mg PO DAILY [facility] Last Admin: 03/12/18 09:28 Dose: 100 mg Nicotine (Nicoderm Cq) 1 patch TD DAILY [facility] Last Admin: 03/12/18 09:27 Dose: 1 patch Ondansetron HCl (Zofran Inj) 4 mg IVP Q6H PRN PRN Reason: Nausea/Vomiting Pantoprazole Sodium (Protonix Ec Tab) 40 mg PO Q24H [facility] Last Admin: 03/12/18 18:12 Dose: 40 mg Saccharomyces Boulardii (Florastor) 250 mg PO BID [facility] Last Admin: 03/12/18 18:12 Dose: 250 mg - Labs Labs: 03/13/18 06:25 03/13/18 06:25 PT 12.6 SECONDS (9.7-12.2) H 03/11/18 15:45 INR 1.2 03/11/18 15:45 APTT 34 SECONDS (21-34) 03/11/18 15:45 - Constitutional Appears: Well, No Acute Distress - Head Exam Head Exam: NORMAL INSPECTION, NORMOCEPHALIC - Eye Exam Eye Exam: EOMI, Normal appearance - ENT Exam ENT Exam: Mucous Membranes Moist, Normal Exam - Respiratory Exam Respiratory Exam: Clear to Ausculation Bilateral, NORMAL BREATHING PATTERN. absent: Wheezes, Respiratory Distress - Cardiovascular Exam Cardiovascular Exam: REGULAR RHYTHM, +S1, +S2. absent: Murmur - GI/Abdominal Exam GI & Abdominal Exam: Soft, Tenderness, Normal Bowel Sounds - Extremities Exam Extremities Exam: Normal Inspection. absent: Pedal Edema - Back Exam Back Exam: NORMAL INSPECTION - Neurological Exam Neurological Exam: Alert, Oriented x3 - Psychiatric Exam Psychiatric exam: Anxious - Skin Skin Exam: Normal Color. absent: Cyanosis, Rash Assessment and Plan - Assessment and Plan (Free Text) Assessment: Patient is a 68 y.o female PMH of diverticulosis with resection, kidney stones, and hypothyroidism presents with progressively worsening left lower quadrant abdominal pain for 1 week. Plan: Abdominal Pain Diverticulosis vs Pyelonehpritis vs UTI UA (03/11) protein 1+, blood 1+, nitrate positive, LE 3+, WBC 640, RBC 38, bacteria many UA 03/11: Urine Cx cath showing E. Coli BCX negative CT Abdomen/Pelvis with Contrast (03/11) suspicious for mild diverticulitis, left lateral abdominal wall ventral hernia containing short segment of small bowel without evidence of bowel incarceration or obstruction, 11mm stone in the left renal pelvis with mild-mod hydronephrosis, resolving right hydronephrosis 2/2 distal right ureter stone Continue Meropenem 1g ID following- Dr. Watkins; recommendations appreciated Nephrolithiasis CT Abdomen/Pelvis with Contrast (03/11) shows bilateral stones as above Urologist: Dr. Castillo following; recommendation is to treat stones after infection clears Hypertension BP controlled; Continue Cozaar 100mg po daily Monitor Hypothyroidism Continue Synthroid 88 mcg po daily Tobacco Abuse Nicotine Patch TD daily Prophylaxis Heparin 5000u sc q8 Protonix 40mg po daily Florastor 250mg po bid <Juwan Shepherd - Last Filed: 03/14/18 07:27> Objective - Vital Signs/Intake and Output Vital Signs (last 24 hours): Temp Pulse Resp BP Pulse Ox 97.7 F 69 20 100/64 95 03/13/18 23:00 03/13/18 23:00 03/13/18 23:00 03/13/18 23:00 03/13/18 23:00 Intake and Output: 03/14/18 03/14/18 06:59 18:59 Intake Total 900 Balance 900 - Medications Medications: Current Medications Heparin Sodium (Porcine) (Heparin) 5,000 units SC Q8 [facility] Last Admin: 03/14/18 06:21 Dose: 5,000 units Meropenem 1 gm/ Sodium (Chloride) 100 mls @ 100 mls/hr IVPB Q8H [facility] PRN Reason: Protocol Last Admin: 03/14/18 02:28 Dose: 100 mls/hr Levothyroxine Sodium (Synthroid) 88 mcg PO DAILY@0630 [facility] Last Admin: 03/14/18 06:21 Dose: 88 mcg Losartan Potassium (Cozaar) 100 mg PO DAILY [facility] Last Admin: 03/13/18 10:25 Dose: 100 mg Nicotine (Nicoderm Cq) 1 patch TD DAILY [facility] Last Admin: 03/13/18 10:25 Dose: 1 patch Ondansetron HCl (Zofran Inj) 4 mg IVP Q6H PRN PRN Reason: Nausea/Vomiting Last Admin: 03/13/18 08:53 Dose: 4 mg Pantoprazole Sodium (Protonix Ec Tab) 40 mg PO Q24H [facility] Last Admin: 03/13/18 18:06 Dose: 40 mg Saccharomyces Boulardii (Florastor) 250 mg PO BID [facility] Last Admin: 03/13/18 18:06 Dose: 250 mg - Labs Labs: 03/14/18 07:00 03/13/18 06:25 PT 12.6 SECONDS (9.7-12.2) H 03/11/18 15:45 INR 1.2 03/11/18 15:45 APTT 34 SECONDS (21-34) 03/11/18 15:45 Attending/Attestation - Attestation I have personally seen and examined this patient.: Yes I have fully participated in the care of the patient.: Yes I have reviewed all pertinent clinical information, including history, physical exam and plan: Yes Notes (Text): Seen and examined with the resident. patient has abdominal and back pain/flank pain,no fever 1.ESBL UTI/complicated with renal pelvic stone and hydronephrosis Normal creatinine E coli sensitive to Meropenem ID Consult Dr Watkins 2. Nephrolithiasis ' Patient was seen by urologist Recommend to follow out pt in two weeks 3.CT finding of diverticolitis Soft abdomen,no nausea,no vomting,no fever diet as tolerated,continue antibiotics 4.Hypothyroidism 5.Hypertension Plan discussed with patient in detail with the help of rn maternal child service Assessment and the plan discussed with the resident and I agree with the documentation
[2018-03-13] MEDS: Saccharomyces Boulardi 250 mg Cap PO SCH ×2 (10:25→18:06)
[2018-03-13] MEDS: Meropenem 1 GM in Sodium Chloride 0.9% 100 ML IVPB SCH ×2 (10:58→18:06)
--- NOTE | 2018-03-13 17:39 | CP.PCM.CON ---
History of Present Illness - History of Present Illness History of Present Illness: dictated Past Patient History - Past Social History Smoking Status: Light Smoker < 10 Cigarettes Daily Alcohol: None Drugs: Denies - CARDIAC Hx Hypertension: Yes - PULMONARY Hx Respiratory Disorders: No - NEUROLOGICAL Hx Neurological Disorder: No - ENDOCRINE/METABOLIC Hx Hypothyroidism: Yes - MUSCULOSKELETAL/RHEUMATOLOGICAL Hx Falls: No - GASTROINTESTINAL Hx Diverticulitis: Yes - PSYCHIATRIC Hx Substance Use: No - SURGICAL HISTORY Hx Surgeries: Yes Other/Comment: Colon surgery 2 years ago - ANESTHESIA Hx Anesthesia: Yes Hx Anesthesia Reactions: No Meds Allergies/Adverse Reactions: Allergies Allergy/AdvReac Type Severity Reaction Status Date / Time No Known Allergies Allergy Verified 03/11/18 14:52 - Medications Medications: Current Medications Heparin Sodium (Porcine) (Heparin) 5,000 units SC Q8 [facility] Last Admin: 03/13/18 13:19 Dose: 5,000 units Meropenem 1 gm/ Sodium (Chloride) 100 mls @ 100 mls/hr IVPB Q8H [facility] PRN Reason: Protocol Last Admin: 03/13/18 10:58 Dose: 100 mls/hr Levothyroxine Sodium (Synthroid) 88 mcg PO DAILY@0630 [facility] Last Admin: 03/13/18 05:44 Dose: 88 mcg Losartan Potassium (Cozaar) 100 mg PO DAILY [facility] Last Admin: 03/13/18 10:25 Dose: 100 mg Nicotine (Nicoderm Cq) 1 patch TD DAILY [facility] Last Admin: 03/13/18 10:25 Dose: 1 patch Ondansetron HCl (Zofran Inj) 4 mg IVP Q6H PRN PRN Reason: Nausea/Vomiting Last Admin: 03/13/18 08:53 Dose: 4 mg Pantoprazole Sodium (Protonix Ec Tab) 40 mg PO Q24H [facility] Last Admin: 03/12/18 18:12 Dose: 40 mg Saccharomyces Boulardii (Florastor) 250 mg PO BID [facility] Last Admin: 03/13/18 10:25 Dose: 250 mg Results - Vital Signs Recent Vital Signs: Last Vital Signs Temp 97.8 F 03/13/18 15:57 Pulse 66 03/13/18 15:57 Resp 20 03/13/18 15:57 BP 115/73 03/13/18 15:57 Pulse Ox 97 03/13/18 15:57 - Labs Result Diagrams: 03/13/18 06:25 03/13/18 06:25 Labs: Laboratory Results - last 24 hr 03/13/18 03/13/18 06:25 06:25 WBC 4.7 L RBC 4.39 Hgb 13.2 Hct 38.6 MCV 88.0 MCH 30.2 MCHC 34.3 RDW 14.5 Plt Count 243 MPV 8.8 Neut % (Auto) 34.4 L Lymph % (Auto) 56.5 H Bradford % (Auto) 6.7 Eos % (Auto) 1.9 Baso % (Auto) 0.5 Neut # (Auto) 1.6 L Lymph # (Auto) 2.6 Bradford # (Auto) 0.3 Eos # (Auto) 0.1 Baso # (Auto) 0.0 Sodium 142 Potassium 4.5 Chloride 102 Carbon Dioxide 28 Anion Gap 16 BUN 23 H Creatinine 0.9 Est GFR ( Amer) > 60 Est GFR (Non-Af Amer) > 60 Random Glucose 102 Calcium 9.8 Total Bilirubin 0.5 AST 17 ALT 22 Alkaline Phosphatase 80 Total Protein 7.7 Albumin 4.3 Globulin 3.5 Albumin/Globulin Ratio 1.2
[2018-03-13] MEDS: Pantoprazole 40 mg EC Tab PO SCH (18:06)
[2018-03-14] MEDS: Meropenem 1 GM in Sodium Chloride 0.9% 100 ML IVPB SCH ×3 (02:28→21:43)
--- NOTE | 2018-03-14 04:51 | CON ---
DATE: 03/13/2018 INFECTIOUS DISEASE CONSULTATION REQUESTED BY: Aroldo Shepherd MD HISTORY OF PRESENT ILLNESS: This patient is a 68-year-old female. She has a history of hypertension, hypothyroidism, diverticulitis. She has a history of colon resection 2 years ago, and she comes in with a left lower quadrant pain. I was asked to evaluate for antibiotics, as she has ESBL in the urine right now. She also has a history of stones. She says that she began to have severe pain 1 week ago. It was intermittent and is worse now. She is bed bound since she came in one day prior to her admission. It is squeezing pain, which radiates to the back, worse after eating, pressure-like, and it is on the left side. She has had surgery in [facility] for the diverticulitis. She arrived from [facility] on 12/28/2017, and she was here with UTI on 01/24/2018 with E. coli, and she received a week-long treatment and got Bactrim and now she is back again with abdominal pain, and she denies any fevers. No headache. No lightheadedness. No other complaints. PAST MEDICAL HISTORY: Significant for hypertension, hypothyroidism, diverticulitis with colon resection, nephrolithiasis. ALLERGIES: SHE IS NOT ALLERGIC TO ANY MEDICINES. MEDICATIONS: Candesartan and levothyroxine. She was also on Levaquin it seems, 750 mg. PAST SURGICAL HISTORY: Colon resection, bladder sling in 1995, hemorrhoidectomy in 1995. FAMILY HISTORY: Her dad . Brother has hepatitis C and he is alive. Dad also had hepatitis C. SOCIAL HISTORY: She smokes 6 to 7 cigarettes a day. Quit alcohol 10 years ago. Denies illicit drugs. Lives at home with niece and her daughter. REVIEW OF SYSTEMS: Chills, fatigue, headache, lethargy, and weakness. Denies any fever at home. Does complain of pain on the left abdomen. Denies any nose or throat problems. Did say that she was having palpitations. No cough. No dyspnea. Abdominal pain is there with nausea and constipation. Complains of urinary frequency and kidney stones. Rest of the exam is unremarkable. She is a live smoker. She denies alcohol and drug abuse. PHYSICAL EXAMINATION: VITAL SIGNS: She is afebrile, T-max is 97.8, pulse 66, blood pressure is 115/73, respirations are 20. HEENT: Head is atraumatic and normocephalic. Pupils are reacting to light. Tongue is moist. NECK: Supple. JVP is flat. LUNGS: Clear. No crackles or rales present. HEART: S1 and S2 are regular. ABDOMEN: Soft and nontender. No guarding. No rigidity present. Vague tenderness in the left side and she has surgical scars. EXTREMITIES: Have no edema, clubbing, or cyanosis. LABORATORY DATA: Labs are noted. Labs show white count 4.7 today, hemoglobin 13.2, hematocrit 38.6, and platelet count is 243,000. She is in a single isolation now because of the urine culture report. CMP is unremarkable. Urine culture showed E. coli which is meropenem sensitive, ertapenem sensitive. Report came out for abdominal and pelvic CT, which was done today, shows suspicious for mild diverticulitis at the proximal portion of the sigmoid colon in the left lower abdomen. Interval increase in the size of the left lateral abdominal wall ventral hernia; contains short segment of small bowel since the previous exam without evidence of bowel incarceration or obstruction. Interval resolving of the previously seen moderate right hydronephrosis secondary to the distal right ureteral stone, interval resolving. An 11 mm stone in the left renal pelvis is again noted associated with [id number] left hydronephrosis. She has an 11 mm stone in the left renal pelvis. It is in the pelvis. It is not causing any obstruction. She has mild diverticulitis. She has UTI most likely due to the stone, I do not think it will clear unless the stone is taken care of, but it is 11 mm, I am not sure. We will wait for the Urology eval. Continue meropenem and we will follow. Keep her in isolation as she has ESBL. Chad Watkins MD
[2018-03-14] MEDS: Levothyroxine 88 MCG TAB PO SCH (06:21)
[2018-03-14 07:06] LABS: BASO % 0.7 % (0.0-2.0); EOS # 0.1 K/uL (0.0-0.7); EOS % 1.5 % (0.0-4.0); HEMOGLOBIN 13.2 g/dL (11.0-16.0); LYMPH # 2.6 K/uL (1.0-4.3); LYMPH % 55.9 % (20.0-40.0); MEAN CELL VOLUME 87.1 fL (81.0-99.0); MEAN CORPUSCULAR HEMOGLOBIN 30.3 pg (27.0-31.0); MEAN CORPUSCULAR HGB CONC 34.8 g/dL (33.0-37.0); MEAN PLATELET VOLUME 8.3 fL (7.2-11.7); MONO # 0.4 K/uL (0.0-0.8); MONO % 7.9 % (0.0-10.0); NEUT # 1.6 K/uL (1.8-7.0); RBC 4.34 Mil/uL (3.80-5.20); RED CELL DISTRIBUTION WIDTH 14.6 % (11.5-14.5); WHITE BLOOD COUNT 4.7 K/uL (4.8-10.8)
[2018-03-14 07:25] LABS: ALB/GLOB RATIO 1.3 (1.0-2.1); ALBUMIN 4.1 g/dL (3.5-5.0); ALT/SGPT 25 U/L (9-52); AST/SGOT 26 U/L (14-36); BLOOD UREA NITROGEN 19 mg/dL (7-17); CALCIUM 9.5 mg/dl (8.6-10.4); GFR AFRICAN-AMERICAN > 60; GFR NON-AFRICAN AMERICAN > 60
[2018-03-14] MEDS: Saccharomyces Boulardi 250 mg Cap PO SCH ×2 (09:52→17:34)
--- NOTE | 2018-03-14 15:06 | CARD ---
APPROVED REPORT Date of service: 03/11/2018 EKG Measurement Heart [id number] <Conclusion> Normal sinus rhythm Normal ECG
--- NOTE | 2018-03-14 17:12 | CP.PCM.PN ---
<[place]a [place] - Last Filed: 03/14/18 17:09> Subjective - Date & Time of Evaluation Date of Evaluation: 03/14/18 Time of Evaluation: 11:30 - Subjective Subjective: PGY-1 Medicine Progress Note Patient seen and examined at bedside. Pt reports minimal left lower quadrant and suprapubic. Patient denies chest pain, shortness of breath, n/v, constipation/diarrhea, urinary symptoms, and dizziness. Patient clinically improving and ambulating with no pain. No acute events overnight as per nursing. Objective - Vital Signs/Intake and Output Vital Signs (last 24 hours): Temp Pulse Resp BP Pulse Ox 97.7 F 76 20 121/79 100 03/14/18 16:08 03/14/18 16:08 03/14/18 16:08 03/14/18 16:08 03/14/18 16:08 Intake and Output: 03/14/18 03/14/18 06:59 18:59 Intake Total 900 Balance 900 - Medications Medications: Current Medications Heparin Sodium (Porcine) (Heparin) 5,000 units SC Q8 [facility] Last Admin: 03/14/18 14:40 Dose: 5,000 units Meropenem 1 gm/ Sodium (Chloride) 100 mls @ 100 mls/hr IVPB Q8H [facility] PRN Reason: Protocol Last Admin: 03/14/18 11:14 Dose: 100 mls/hr Levothyroxine Sodium (Synthroid) 88 mcg PO DAILY@0630 [facility] Last Admin: 03/14/18 06:21 Dose: 88 mcg Losartan Potassium (Cozaar) 100 mg PO DAILY [facility] Last Admin: 03/14/18 09:52 Dose: 100 mg Nicotine (Nicoderm Cq) 1 patch TD DAILY [facility] Last Admin: 03/14/18 09:52 Dose: 1 patch Ondansetron HCl (Zofran Inj) 4 mg IVP Q6H PRN PRN Reason: Nausea/Vomiting Last Admin: 03/13/18 08:53 Dose: 4 mg Pantoprazole Sodium (Protonix Ec Tab) 40 mg PO Q24H [facility] Last Admin: 03/13/18 18:06 Dose: 40 mg Saccharomyces Boulardii (Florastor) 250 mg PO BID [facility] Last Admin: 03/14/18 09:52 Dose: 250 mg - Labs Labs: 03/14/18 07:00 03/14/18 07:00 PT 12.6 SECONDS (9.7-12.2) H 03/11/18 15:45 INR 1.2 03/11/18 15:45 APTT 34 SECONDS (21-34) 03/11/18 15:45 - Constitutional Appears: Well, No Acute Distress - Head Exam Head Exam: ATRAUMATIC, NORMAL INSPECTION, NORMOCEPHALIC - Eye Exam Eye Exam: EOMI, Normal appearance. absent: Nystagmus, Scleral icterus - ENT Exam ENT Exam: Mucous Membranes Moist, Normal Exam - Neck Exam Neck Exam: Full ROM. absent: Lymphadenopathy, Thyromegaly - Respiratory Exam Respiratory Exam: Clear to Ausculation Bilateral, NORMAL BREATHING PATTERN. absent: Rales, Wheezes - Cardiovascular Exam Cardiovascular Exam: REGULAR RHYTHM, +S1, +S2. absent: Murmur - GI/Abdominal Exam GI & Abdominal Exam: Soft, Normal Bowel Sounds - Extremities Exam Extremities Exam: Normal Inspection. absent: Pedal Edema - Neurological Exam Neurological Exam: Alert, Oriented x3 - Psychiatric Exam Psychiatric exam: Normal Affect, Normal Mood. absent: Anxious - Skin Skin Exam: Normal Color, Warm Assessment and Plan - Assessment and Plan (Free Text) Assessment: Patient is a 68 y.o female PMH of diverticulosis with resection, kidney stones, and hypothyroidism presents with progressively worsening left lower quadrant abdominal pain for 1 week. Plan: Abdominal Pain Diverticulosis vs Pyelonehpritis vs UTI UA (03/11) protein 1+, blood 1+, nitrate positive, LE 3+, WBC 640, RBC 38, bacteria many UA 03/11: Urine Cx cath showing E. Coli BCX negative CT Abdomen/Pelvis with Contrast (03/11) suspicious for mild diverticulitis, left lateral abdominal wall ventral hernia containing short segment of small bowel without evidence of bowel incarceration or obstruction, 11mm stone in the left renal pelvis with mild-mod hydronephrosis, resolving right hydronephrosis 2/2 distal right ureter stone Continue Meropenem 1g ID following- Dr. Watkins; Awaiting Dr. Watkins recommendations for possible antibiotic management Patient CX positive for ESBL Nephrolithiasis CT Abdomen/Pelvis with Contrast (03/11) shows bilateral stones as above Urologist: Dr. Castillo following; recommendation is to treat stones after infection clears Hypertension BP controlled; Continue Cozaar 100mg po daily Monitor Hypothyroidism Continue Synthroid 88 mcg po daily Tobacco Abuse Nicotine Patch TD daily Prophylaxis Heparin 5000u sc q8 Protonix 40mg po daily Florastor 250mg po bid <Cristian Shepherdpatriciajessica - Last Filed: 03/14/18 20:17> Objective - Vital Signs/Intake and Output Vital Signs (last 24 hours): Temp Pulse Resp BP Pulse Ox 97.7 F 76 20 121/79 100 03/14/18 16:08 03/14/18 16:08 03/14/18 16:08 03/14/18 16:08 03/14/18 16:08 - Medications Medications: Current Medications Heparin Sodium (Porcine) (Heparin) 5,000 units SC Q8 [facility] Last Admin: 03/14/18 14:40 Dose: 5,000 units Meropenem 1 gm/ Sodium (Chloride) 100 mls @ 100 mls/hr IVPB Q8H [facility] PRN Reason: Protocol Last Admin: 03/14/18 11:14 Dose: 100 mls/hr Levothyroxine Sodium (Synthroid) 88 mcg PO DAILY@0630 [facility] Last Admin: 03/14/18 06:21 Dose: 88 mcg Losartan Potassium (Cozaar) 100 mg PO DAILY [facility] Last Admin: 03/14/18 09:52 Dose: 100 mg Nicotine (Nicoderm Cq) 1 patch TD DAILY [facility] Last Admin: 03/14/18 09:52 Dose: 1 patch Ondansetron HCl (Zofran Inj) 4 mg IVP Q6H PRN PRN Reason: Nausea/Vomiting Last Admin: 03/13/18 08:53 Dose: 4 mg Pantoprazole Sodium (Protonix Ec Tab) 40 mg PO Q24H [facility] Last Admin: 03/13/18 18:06 Dose: 40 mg Saccharomyces Boulardii (Florastor) 250 mg PO BID [facility] Last Admin: 03/14/18 17:34 Dose: 250 mg - Labs Labs: 03/14/18 07:00 03/14/18 07:00 PT 12.6 SECONDS (9.7-12.2) H 03/11/18 15:45 INR 1.2 03/11/18 15:45 APTT 34 SECONDS (21-34) 03/11/18 15:45 Attending/Attestation - Attestation I have personally seen and examined this patient.: Yes I have fully participated in the care of the patient.: Yes I have reviewed all pertinent clinical information, including history, physical exam and plan: Yes Notes (Text): seen and examined ,Patient was explained about treatment plan Discussed with Dr Watkins may switch to one a day antibiotics/Er tapenem if possible to get out pt infusion' d/w SW she is not eligible for out pt infusion we will continue meropenem,follow Dr Watkins's recommendation out pt treatment for her stone as per urologist d/w resident and I agrees the assessment and the plan 1.ESBL UTI 2.Left Renal Pelvis stone with mild hydronephrosis
[2018-03-14] MEDS: Pantoprazole 40 mg EC Tab PO SCH (18:42)
--- NOTE | 2018-03-14 22:52 | CP.PCM.PN ---
Subjective - Date & Time of Evaluation Date of Evaluation: 03/14/18 Time of Evaluation: 03:00 - Subjective Subjective: dictated Objective - Vital Signs/Intake and Output Vital Signs (last 24 hours): Temp Pulse Resp BP Pulse Ox 97.7 F 76 20 121/79 100 03/14/18 16:08 03/14/18 16:08 03/14/18 16:08 03/14/18 16:08 03/14/18 16:08 - Medications Medications: Current Medications Meropenem 1 gm/ Sodium (Chloride) 100 mls @ 100 mls/hr IVPB Q8H [facility] PRN Reason: Protocol Last Admin: 03/14/18 21:43 Dose: 100 mls/hr Levothyroxine Sodium (Synthroid) 88 mcg PO DAILY@0630 [facility] Last Admin: 03/14/18 06:21 Dose: 88 mcg Losartan Potassium (Cozaar) 100 mg PO DAILY [facility] Last Admin: 03/14/18 09:52 Dose: 100 mg Nicotine (Nicoderm Cq) 1 patch TD DAILY [facility] Last Admin: 03/14/18 09:52 Dose: 1 patch Ondansetron HCl (Zofran Inj) 4 mg IVP Q6H PRN PRN Reason: Nausea/Vomiting Last Admin: 03/13/18 08:53 Dose: 4 mg Pantoprazole Sodium (Protonix Ec Tab) 40 mg PO Q24H [facility] Last Admin: 03/14/18 18:42 Dose: 40 mg Saccharomyces Boulardii (Florastor) 250 mg PO BID [facility] Last Admin: 03/14/18 17:34 Dose: 250 mg - Labs Labs: 03/14/18 07:00 03/14/18 07:00 PT 12.6 SECONDS (9.7-12.2) H 03/11/18 15:45 INR 1.2 03/11/18 15:45 APTT 34 SECONDS (21-34) 03/11/18 15:45
--- NOTE | 2018-03-15 01:26 | PN ---
Copied To: Chad Watkins MD Attending MD: Chad Watkins MD DATE: 03/14/2018 SUBJECTIVE: The patient was seen today. She was very thankful that she was feeling much better and she denied any urinary complaints. Denies any back pain. She was seen by the urologist and she had very minimal left lower quadrant and suprapubic pain. No chest pain. No fevers and was feeling better. OBJECTIVE: VITAL SIGNS: T-max was 97.7, pulse 76, blood pressure 121/79, respirations are 20. HEENT: Head is atraumatic. NECK: Supple. LUNGS: Clear. HEART: S1 and S2 is regular. ABDOMEN: Soft, nontender. No guarding, no rigidity present. EXTREMITIES: Had no edema, clubbing or cyanosis. LABORATORY DATA: Labs are noted. Labs show white count is 4.7, hemoglobin 13.2, hematocrit 37.8, platelet count is 237. Chemistry shows sodium 141, potassium 4.5, chloride of 103, CO2 is 27, BUN is 19, creatinine 0.9. UA shows 3+ leukocytes, wbc 15. She did have a micro. Urine culture showed ESBL positive and now it is turning negative, but she did have meropenem sensitive, it is also sensitive to ertapenem. DIAGNOSTIC STUDIES: She does have kidney stone. Abdominal and pelvic CAT scan, the final report shows suspicious for mild diverticulitis at the proximal portion of the sigmoid colon and the left lower abdomen. Interval increase in the size of the left lateral abdominal ventral hernia containing short segment of small bowel loops since the previous exam without evidence of bowel incarceration or obstruction. Interval resolving of the previously seen moderate right hydro, secondary to distal right ureter stone. A 1.1-mm stone in the left pelvis is again noted associated with mild to moderate left hydronephrosis. ASSESSMENT AND PLAN: So, she has a mild diverticulitis along with left hydronephrosis with a kidney stone and she has extended spectrum beta-lactamases in the urine. I would suggest to give ertapenem outpatient for 8 days more or if that cannot be arranged to continue meropenem here for next several days to complete a total 10 days course, and she should be referred for kidney lithotripsy by the urologist as outpatient and a Gastrointestinal workup for diverticulitis with heel edge inker machine. Chad Watkins MD [facility] # [id number]
[2018-03-15] MEDS: Meropenem 1 GM in Sodium Chloride 0.9% 100 ML IVPB SCH ×3 (03:16→18:01)
[2018-03-15] MEDS: Levothyroxine 88 MCG TAB PO SCH (06:02)
--- NOTE | 2018-03-15 07:15 | CP.PCM.PN ---
Subjective - Date & Time of Evaluation Date of Evaluation: 03/15/18 Time of Evaluation: 13:00 - Subjective Subjective: PGY-1 Medicine Progress Note Patient seen and examined at bedside. Patient offers no acute complaints. Nursing reports no overnight events. Patient denies suprapubic pain, left lower quadrant pain and states she has no pain anymore. Patient denies urinary symptoms. Patient denies chest pain, sob, n/v, constipation or diarrhea. Objective - Vital Signs/Intake and Output Vital Signs (last 24 hours): Temp Pulse Resp BP Pulse Ox 97.8 F 72 20 93/63 L 98 03/14/18 23:58 03/14/18 23:58 03/14/18 23:58 03/15/18 03:00 03/14/18 23:58 - Medications Medications: Current Medications Meropenem 1 gm/ Sodium (Chloride) 100 mls @ 100 mls/hr IVPB Q8H [facility] PRN Reason: Protocol Last Admin: 03/15/18 03:16 Dose: 100 mls/hr Levothyroxine Sodium (Synthroid) 88 mcg PO DAILY@0630 [facility] Last Admin: 03/15/18 06:02 Dose: 88 mcg Losartan Potassium (Cozaar) 100 mg PO DAILY [facility] Last Admin: 03/14/18 09:52 Dose: 100 mg Nicotine (Nicoderm Cq) 1 patch TD DAILY [facility] Last Admin: 03/14/18 09:52 Dose: 1 patch Ondansetron HCl (Zofran Inj) 4 mg IVP Q6H PRN PRN Reason: Nausea/Vomiting Last Admin: 03/13/18 08:53 Dose: 4 mg Pantoprazole Sodium (Protonix Ec Tab) 40 mg PO Q24H [facility] Last Admin: 03/14/18 18:42 Dose: 40 mg Saccharomyces Boulardii (Florastor) 250 mg PO BID [facility] Last Admin: 03/14/18 17:34 Dose: 250 mg - Labs Labs: 03/14/18 07:00 03/14/18 07:00 PT 12.6 SECONDS (9.7-12.2) H 03/11/18 15:45 INR 1.2 03/11/18 15:45 APTT 34 SECONDS (21-34) 03/11/18 15:45 - Constitutional Appears: Non-toxic, No Acute Distress - Head Exam Head Exam: NORMAL INSPECTION, NORMOCEPHALIC - Eye Exam Eye Exam: EOMI, Normal appearance. absent: Scleral icterus - ENT Exam ENT Exam: Mucous Membranes Moist, Normal Exam - Respiratory Exam Respiratory Exam: Clear to Ausculation Bilateral, NORMAL BREATHING PATTERN. absent: Wheezes, Respiratory Distress - Cardiovascular Exam Cardiovascular Exam: REGULAR RHYTHM, +S1, +S2. absent: Murmur - GI/Abdominal Exam GI & Abdominal Exam: Soft, Normal Bowel Sounds. absent: Distended, Firm, Guarding, Tenderness - Extremities Exam Extremities Exam: Normal Inspection. absent: Calf Tenderness, Pedal Edema - Back Exam Back Exam: NORMAL INSPECTION. absent: CVA tenderness (L), CVA tenderness (R), paraspinal tenderness - Neurological Exam Neurological Exam: Alert, Awake, Normal Gait, Oriented x3 Neuro motor strength exam: Left Upper Extremity: 5, Right Upper Extremity: 5, Left Lower Extremity: 5, Right Lower Extremity: 5 - Psychiatric Exam Psychiatric exam: Normal Affect, Normal Mood - Skin Skin Exam: Normal Color. absent: Rash Assessment and Plan - Assessment and Plan (Free Text) Assessment: Patient is a 68 y.o female with PMH kidney stones, diverticulosis with resections, hypothyroidism, HTN presented to the hospital for left lower quadrant pain and suprapupic tenderness; admitted for UTI; cultures positive for E coli ESBL Plan: UTI Symptoms improving Meropenem 1g IVPB q8hr (started 03/13 to end 03/22/18) ID Consulted: Dr. Watkins/ clement appreciated UA (03/11) protein 1+, blood 1+, nitrate positive, LE 3+, WBC 640, RBC 38, bacteria many UA 03/11: Urine Cx cath showing ESBL Blood culture 03/[address] Abdomen/Pelvis with Contrast (03/11) suspicious for mild diverticulitis, left lateral abdominal wall ventral hernia containing short segment of small bowel without evidence of bowel incarceration or obstruction, 11mm stone in the left renal pelvis with mild-mod hydronephrosis, resolving right hydronephrosis 2/2 distal right ureter stone Nephrolithiasis CT Abdomen/Pelvis with Contrast (03/11) shows bilateral stones as above Urologist: Dr. Castillo following; recommendation is to treat stones outpatient after infection clears Hypertension BP controlled; Continue Cozaar 100mg po daily Hypothyroidism Continue Synthroid 88 mcg po daily Tobacco Abuse Nicotine Patch TD daily Prophylaxis DVT prophlyaxis: SCDs; patient very ambulatory Protonix 40mg po daily Florastor 250mg po bid Heart Healthy Diet DISPO: Will need IV antibiotic treatment until 03/22/18. Not eligible for [facility]/ outpatient infusions [place] PGY-1
[2018-03-15 08:32] LABS: EOS # 0.1 K/uL (0.0-0.7); EOS % 1.6 % (0.0-4.0); HEMOGLOBIN 12.9 g/dL (11.0-16.0); LYMPH # 2.5 K/uL (1.0-4.3); LYMPH % 55.1 % (20.0-40.0); MEAN CELL VOLUME 86.9 fL (81.0-99.0); MEAN CORPUSCULAR HEMOGLOBIN 30.8 pg (27.0-31.0); MEAN CORPUSCULAR HGB CONC 35.4 g/dL (33.0-37.0); MEAN PLATELET VOLUME 8.3 fL (7.2-11.7); MONO # 0.4 K/uL (0.0-0.8); MONO % 7.9 % (0.0-10.0); NEUT # 1.5 K/uL (1.8-7.0); NEUT % 34.4 % (50.0-75.0); NRBC % 0.1 % (0.0-2.0); RBC 4.19 Mil/uL (3.80-5.20); RED CELL DISTRIBUTION WIDTH 14.4 % (11.5-14.5); WHITE BLOOD COUNT 4.5 K/uL (4.8-10.8)
[2018-03-15 09:08] LABS: ALB/GLOB RATIO 1.3 (1.0-2.1); ALT/SGPT 31 U/L (9-52); AST/SGOT 29 U/L (14-36); BLOOD UREA NITROGEN 24 mg/dL (7-17); CALCIUM 9.6 mg/dl (8.6-10.4); GFR AFRICAN-AMERICAN > 60; GFR NON-AFRICAN AMERICAN > 60
[2018-03-15] MEDS: Saccharomyces Boulardi 250 mg Cap PO SCH ×2 (10:15→18:01)
[2018-03-15] MEDS: Pantoprazole 40 mg EC Tab PO SCH (18:01)
--- NOTE | 2018-03-15 18:08 | PN ---
Copied To: Chad Watkins MD Attending MD: Chad Watkins MD DATE: 03/15/2018 SUBJECTIVE: The patient is feeling better. She is getting IV antibiotics. Her blood pressure is still better today. Denies pain in the back. PHYSICAL EXAMINATION: VITAL SIGNS: T-max is 97.8, pulse 65, blood pressure is 104/68, respirations are 20. HEENT: Head is atraumatic, normocephalic. NECK: Supple. LUNGS: Clear. HEART: S1 and S2 are regular. ABDOMEN: Soft and nontender. No guarding. No rigidity present. EXTREMITIES: No edema. She is on meropenem. White count is 4.5 and creatinine is 0.8. She has a complicated UTI with hydronephrosis with interval increase in the ventral hernia, interval resolving, and she has mild diverticulitis and interval resolving moderate right hydronephrosis secondary to distal right ureteral stone with interval resolving, and she also has a 11 mm stone in the left renal pelvis associated with [id number] left hydronephrosis. She has a complicated history with kidney stones, obstruction, and hydronephrosis. Suggested at this time to give antibiotics for ten days and she needs to follow up with the urologist for possible lithotripsy as these are the source of infection. Chad Watkins MD
[2018-03-16] MEDS: Meropenem 1 GM in Sodium Chloride 0.9% 100 ML IVPB SCH ×3 (02:43→18:04)
[2018-03-16] MEDS: Levothyroxine 88 MCG TAB PO SCH (05:59)
[2018-03-16 06:48] LABS: EOS # 0.1 K/uL (0.0-0.7); EOS % 1.3 % (0.0-4.0); HEMOGLOBIN 12.9 g/dL (11.0-16.0); LYMPH # 2.5 K/uL (1.0-4.3); LYMPH % 57.8 % (20.0-40.0); MEAN CORPUSCULAR HEMOGLOBIN 30.2 pg (27.0-31.0); MEAN CORPUSCULAR HGB CONC 34.7 g/dL (33.0-37.0); MEAN PLATELET VOLUME 8.4 fL (7.2-11.7); MONO # 0.4 K/uL (0.0-0.8); MONO % 9.9 % (0.0-10.0); NEUT # 1.3 K/uL (1.8-7.0); NRBC % 0.2 % (0.0-2.0); RBC 4.29 Mil/uL (3.80-5.20); RED CELL DISTRIBUTION WIDTH 14.2 % (11.5-14.5); WHITE BLOOD COUNT 4.4 K/uL (4.8-10.8)
[2018-03-16 07:27] LABS: ALB/GLOB RATIO 1.3 (1.0-2.1); ALBUMIN 3.9 g/dL (3.5-5.0); ALT/SGPT 27 U/L (9-52); AST/SGOT 22 U/L (14-36); BLOOD UREA NITROGEN 20 mg/dL (7-17); CALCIUM 9.4 mg/dl (8.6-10.4); GFR AFRICAN-AMERICAN > 60; GFR NON-AFRICAN AMERICAN > 60
--- NOTE | 2018-03-16 07:27 | CP.PCM.PN ---
Subjective - Date & Time of Evaluation Date of Evaluation: 03/16/18 Time of Evaluation: 07:24 - Subjective Subjective: PGY-1 Medicine Progress Note for Dr. Mendoza's service Patient seen and examined. Patient was ambulating with no difficulties at time of examination. Patient reports no suprapubic tenderness or left lower quadrant abdominal pain. Patient denies pain in any other areas including flank pain. Patient reports good appetite with no nausea/vomiting. Patient denies chest pain , shortness of breath, urinary symptoms, constipation or diarrhea. Objective - Vital Signs/Intake and Output Vital Signs (last 24 hours): Temp Pulse Resp BP Pulse Ox 98.1 F 67 20 104/70 98 03/15/18 23:50 03/15/18 23:50 03/15/18 23:50 03/15/18 23:50 03/15/18 23:50 Intake and Output: 03/16/18 03/16/18 06:59 18:59 Intake Total 900 Balance 900 - Medications Medications: Current Medications Meropenem 1 gm/ Sodium (Chloride) 100 mls @ 100 mls/hr IVPB Q8H [facility] PRN Reason: Protocol Last Admin: 03/16/18 02:43 Dose: 100 mls/hr Levothyroxine Sodium (Synthroid) 88 mcg PO DAILY@0630 [facility] Last Admin: 03/16/18 05:59 Dose: 88 mcg Losartan Potassium (Cozaar) 100 mg PO DAILY [facility] Last Admin: 03/15/18 10:15 Dose: 100 mg Nicotine (Nicoderm Cq) 1 patch TD DAILY [facility] Last Admin: 03/15/18 10:16 Dose: 1 patch Pantoprazole Sodium (Protonix Ec Tab) 40 mg PO Q24H [facility] Last Admin: 03/15/18 18:01 Dose: 40 mg Saccharomyces Boulardii (Florastor) 250 mg PO BID [facility] Last Admin: 03/15/18 18:01 Dose: 250 mg - Labs Labs: 03/16/18 06:34 03/15/18 08:19 PT 12.6 SECONDS (9.7-12.2) H 03/11/18 15:45 INR 1.2 03/11/18 15:45 APTT 34 SECONDS (21-34) 03/11/18 15:45 - Additional Findings Additional findings: - Constitutional Appears: Non-toxic, No Acute Distress - Head Exam Head Exam: NORMAL INSPECTION, NORMOCEPHALIC - Eye Exam Eye Exam: EOMI, Normal appearance. absent: Scleral icterus - ENT Exam ENT Exam: Mucous Membranes Moist, Normal Exam - Respiratory Exam Respiratory Exam: Clear to Ausculation Bilateral, NORMAL BREATHING PATTERN. absent: Wheezes, Respiratory Distress - Cardiovascular Exam Cardiovascular Exam: REGULAR RHYTHM, +S1, +S2. absent: Murmur - GI/Abdominal Exam GI & Abdominal Exam: Soft, Normal Bowel Sounds. absent: Distended, Firm, Guarding, Tenderness - Extremities Exam Extremities Exam: Normal Inspection. absent: Calf Tenderness, Pedal Edema - Back Exam Back Exam: NORMAL INSPECTION. absent: CVA tenderness (L), CVA tenderness (R), paraspinal tenderness - Neurological Exam Neurological Exam: Alert, Awake, Normal Gait, Oriented x3 Neuro motor strength exam: Left Upper Extremity: 5, Right Upper Extremity: 5, Left Lower Extremity: 5, Right Lower Extremity: 5 - Psychiatric Exam Psychiatric exam: Normal Affect, Normal Mood - Skin Skin Exam: Normal Color. absent: Rash Assessment and Plan - Assessment and Plan (Free Text) Assessment: Patient is a 68 y.o female with PMH kidney stones, diverticulosis with resections, hypothyroidism, HTN presented to the hospital for left lower quadrant pain and suprapupic tenderness; admitted for UTI; cultures positive for ESBL; treated inpatient with IV abx meropenem Plan: UTI Symptoms improving Meropenem 1g IVPB q8hr (started 03/13 to end 03/22/18) ID Consulted: Dr. Watkins/ help appreciated UA (03/11) protein 1+, blood 1+, nitrate positive, LE 3+, WBC 640, RBC 38, bacteria many UA 03/11: Urine Cx cath showing ESBL Blood culture 03/[address] Abdomen/Pelvis with Contrast (03/11) suspicious for mild diverticulitis, left lateral abdominal wall ventral hernia containing short segment of small bowel without evidence of bowel incarceration or obstruction, 11mm stone in the left renal pelvis with mild-mod hydronephrosis, resolving right hydronephrosis 2/2 distal right ureter stone Nephrolithiasis CT Abdomen/Pelvis with Contrast (03/11) shows bilateral stones as above Likely source of UTI infection secondary to possible kidney stone Urologist: Dr. Castillo following; recommendation is to treat stones outpatient after infection clears Hypertension Cozaar held in the setting of low blood pressure Hypothyroidism Continue Synthroid 88 mcg po daily Tobacco Abuse Nicotine Patch TD daily Prophylaxis DVT prophlyaxis: SCDs; patient very ambulatory Protonix 40mg po daily Florastor 250mg po bid Heart Healthy Diet DISPO: Patient will be switched to Invanz 1g IV daily upon discharge. Patient ready for discharge likely tomorrow pending PICC. [place] PGY-1
[2018-03-16] MEDS: Saccharomyces Boulardi 250 mg Cap PO SCH ×2 (09:50→18:04)
[2018-03-16] MEDS: Pantoprazole 40 mg EC Tab PO SCH (18:04)
[2018-03-17] MEDS: Meropenem 1 GM in Sodium Chloride 0.9% 100 ML IVPB SCH ×3 (04:39→19:57)
[2018-03-17] MEDS: Levothyroxine 88 MCG TAB PO SCH (06:24)
[2018-03-17 07:50] LABS: BASO % 1.1 % (0.0-2.0); EOS # 0.1 K/uL (0.0-0.7); EOS % 1.5 % (0.0-4.0); HEMOGLOBIN 12.5 g/dL (11.0-16.0); LYMPH # 2.5 K/uL (1.0-4.3); MEAN CELL VOLUME 87.3 fL (81.0-99.0); MEAN CORPUSCULAR HGB CONC 34.4 g/dL (33.0-37.0); MEAN PLATELET VOLUME 8.4 fL (7.2-11.7); MONO # 0.3 K/uL (0.0-0.8); NEUT # 1.4 K/uL (1.8-7.0); NEUT % 32.4 % (50.0-75.0); RBC 4.15 Mil/uL (3.80-5.20); RED CELL DISTRIBUTION WIDTH 14.1 % (11.5-14.5); WHITE BLOOD COUNT 4.3 K/uL (4.8-10.8)
[2018-03-17 08:06] LABS: ALB/GLOB RATIO 1.3 (1.0-2.1); ALT/SGPT 36 U/L (9-52); AST/SGOT 24 U/L (14-36); BLOOD UREA NITROGEN 22 mg/dL (7-17); CALCIUM 9.4 mg/dl (8.6-10.4); GFR AFRICAN-AMERICAN > 60; GFR NON-AFRICAN AMERICAN > 60
[2018-03-17] MEDS: Saccharomyces Boulardi 250 mg Cap PO SCH ×2 (10:50→17:56)
--- NOTE | 2018-03-17 13:41 | RAD ---
Date of service: 03/17/2018 HISTORY: verify right PICC COMPARISON: No prior. FINDINGS: The right PICC line terminates at the cavoatrial junction. LUNGS: The lungs are well inflated. There is mild pulmonary venous congestion. No focal consolidation. PLEURA: No significant pleural effusion identified, no pneumothorax apparent. CARDIOVASCULAR: There is mild cardiomegaly. OSSEOUS STRUCTURES: Within normal limits for the patient's age. VISUALIZED UPPER ABDOMEN: Normal. OTHER FINDINGS: None. IMPRESSION: Right PICC line terminates at the cavoatrial junction. No active pulmonary disease. Mild cardiomegaly and mild pulmonary venous congestion.
[2018-03-17 15:57] VITALS: RESP 20
--- NOTE | 2018-03-17 17:15 | CP.PCM.PN ---
Subjective - Date & Time of Evaluation Date of Evaluation: 03/17/18 Time of Evaluation: 13:30 - Subjective Subjective: PGY-1 Medicine Progress Note for Dr. Mendoza's service Patient seen and examined at bedside. Patient reports mild suprapubic pain but denies fevers or chills. Patient denies urinary symptoms. Patient had PICC line placed today for outpt IV infusions starting on Tuesday. Patient denies chest pain, sob, n/v, constipation or diarrhea. Objective - Vital Signs/Intake and Output Vital Signs (last 24 hours): Temp Pulse Resp BP Pulse Ox 97.9 F 75 20 95/62 L 98 03/17/18 15:55 03/17/18 15:55 03/17/18 15:55 03/17/18 15:55 03/17/18 15:55 Intake and Output: 03/17/18 03/17/18 06:59 18:59 Intake Total 600 830 Balance 600 830 - Medications Medications: Current Medications Meropenem 1 gm/ Sodium (Chloride) 100 mls @ 100 mls/hr IVPB Q8H [facility] PRN Reason: Protocol Last Admin: 03/17/18 14:47 Dose: 100 mls/hr Levothyroxine Sodium (Synthroid) 88 mcg PO DAILY@0630 [facility] Last Admin: 03/17/18 06:24 Dose: 88 mcg Losartan Potassium (Cozaar) 100 mg PO DAILY [facility] Last Admin: 03/17/18 10:51 Dose: Not Given Nicotine (Nicoderm Cq) 1 patch TD DAILY [facility] Last Admin: 03/17/18 10:55 Dose: 1 patch Pantoprazole Sodium (Protonix Ec Tab) 40 mg PO Q24H [facility] Last Admin: 03/16/18 18:04 Dose: 40 mg Saccharomyces Boulardii (Florastor) 250 mg PO BID [facility] Last Admin: 03/17/18 10:50 Dose: 250 mg - Labs Labs: 03/17/18 07:43 03/17/18 07:43 PT 12.6 SECONDS (9.7-12.2) H 03/11/18 15:45 INR 1.2 03/11/18 15:45 APTT 34 SECONDS (21-34) 03/11/18 15:45 - Additional Findings Additional findings: - Constitutional Appears: Non-toxic, No Acute Distress - Head Exam Head Exam: NORMAL INSPECTION, NORMOCEPHALIC - Eye Exam Eye Exam: EOMI, Normal appearance. absent: Scleral icterus - ENT Exam ENT Exam: Mucous Membranes Moist, Normal Exam - Respiratory Exam Respiratory Exam: Clear to Ausculation Bilateral, NORMAL BREATHING PATTERN. absent: Wheezes, Respiratory Distress - Cardiovascular Exam Cardiovascular Exam: REGULAR RHYTHM, +S1, +S2. absent: Murmur - GI/Abdominal Exam GI & Abdominal Exam: Soft, Normal Bowel Sounds. absent: Distended, Firm, Guarding, Tenderness - Extremities Exam Extremities Exam: Normal Inspection, PICC line in right arm absent: Calf Tenderness, Pedal Edema - Back Exam Back Exam: NORMAL INSPECTION. absent: CVA tenderness (L), CVA tenderness (R), paraspinal tenderness - Neurological Exam Neurological Exam: Alert, Awake, Normal Gait, Oriented x3 - Psychiatric Exam Psychiatric exam: Normal Affect, Normal Mood - Skin Skin Exam: Normal Color. absent: Rash Assessment and Plan - Assessment and Plan (Free Text) Assessment: Patient is a 68 y.o female with PMH kidney stones, diverticulosis with resections, hypothyroidism, HTN presented to the hospital for left lower quadrant pain and suprapupic tenderness; admitted for UTI; cultures positive for ESBL; treated inpatient with IV abx meropenem Plan: UTI Symptoms improving Meropenem 1g IVPB q8hr (started 03/13 to end 03/22/18) PICC line placed today; Will do outpatient IV abx infusions starting Tuesday ID Consulted: Dr. Watkins/ clement appreciated UA (03/11) protein 1+, blood 1+, nitrate positive, LE 3+, WBC 640, RBC 38, bacteria many UA 03/11: Urine Cx cath showing ESBL Blood culture 03/[address] Abdomen/Pelvis with Contrast (03/11) suspicious for mild diverticulitis, left lateral abdominal wall ventral hernia containing short segment of small bowel without evidence of bowel incarceration or obstruction, 11mm stone in the left renal pelvis with mild-mod hydronephrosis, resolving right hydronephrosis 2/2 distal right ureter stone Nephrolithiasis CT Abdomen/Pelvis with Contrast (03/11) shows bilateral stones as above Likely source of UTI infection secondary to possible kidney stone Urologist: Dr. Castillo following; recommendation is to treat stones outpatient after infection clears Hypertension Cozaar held in the setting of low blood pressure Hypothyroidism Continue Synthroid 88 mcg po daily Tobacco Abuse Nicotine Patch TD daily Prophylaxis DVT prophlyaxis: SCDs; patient very ambulatory Protonix 40mg po daily Florastor 250mg po bid Heart Healthy Diet DISPO: Patient will be discharged on tuesday with 3 doses of outpatient IV infusions to complete 10 day course of meropenem. [place] PGY-1
[2018-03-17] MEDS: Pantoprazole 40 mg EC Tab PO SCH (19:57)
[2018-03-18] MEDS: Meropenem 1 GM in Sodium Chloride 0.9% 100 ML IVPB SCH ×3 (02:29→21:17)
[2018-03-18] MEDS: Levothyroxine 88 MCG TAB PO SCH (06:14)
--- NOTE | 2018-03-18 06:56 | CP.PCM.PN ---
<Marely Martin - Last Filed: 03/18/18 08:04> Subjective - Date & Time of Evaluation Date of Evaluation: 03/18/18 Time of Evaluation: 06:51 - Subjective Subjective: 68 yo F seen and examined at bedside, no acute events overnight. Pt has no complaints this morning; denies chest pain, SOB, abd pain, nausea, vomiting Objective - Vital Signs/Intake and Output Vital Signs (last 24 hours): Temp Pulse Resp BP Pulse Ox 98.5 F 59 L 20 117/78 98 03/18/18 00:00 03/18/18 00:00 03/18/18 00:00 03/18/18 00:00 03/18/18 00:00 Intake and Output: 03/17/18 03/18/18 18:59 06:59 Intake Total 830 900 Balance 830 900 - Medications Medications: Current Medications Meropenem 1 gm/ Sodium (Chloride) 100 mls @ 100 mls/hr IVPB Q8H [facility] PRN Reason: Protocol Last Admin: 03/18/18 02:29 Dose: 100 mls/hr Levothyroxine Sodium (Synthroid) 88 mcg PO DAILY@0630 [facility] Last Admin: 03/18/18 06:14 Dose: 88 mcg Losartan Potassium (Cozaar) 100 mg PO DAILY [facility] Last Admin: 03/17/18 10:51 Dose: Not Given Nicotine (Nicoderm Cq) 1 patch TD DAILY [facility] Last Admin: 03/17/18 10:55 Dose: 1 patch Pantoprazole Sodium (Protonix Ec Tab) 40 mg PO Q24H [facility] Last Admin: 03/17/18 19:57 Dose: 40 mg Saccharomyces Boulardii (Florastor) 250 mg PO BID [facility] Last Admin: 03/17/18 17:56 Dose: 250 mg - Labs Labs: 03/17/18 07:43 03/17/18 07:43 PT 12.6 SECONDS (9.7-12.2) H 03/11/18 15:45 INR 1.2 03/11/18 15:45 APTT 34 SECONDS (21-34) 03/11/18 15:45 - Constitutional Appears: Well, Non-toxic, No Acute Distress - Head Exam Head Exam: ATRAUMATIC, NORMAL INSPECTION, NORMOCEPHALIC - Eye Exam Eye Exam: EOMI, Normal appearance - ENT Exam ENT Exam: Mucous Membranes Moist, Normal Exam - Respiratory Exam Respiratory Exam: Clear to Ausculation Bilateral, NORMAL BREATHING PATTERN. absent: Rhonchi, Wheezes - Cardiovascular Exam Cardiovascular Exam: REGULAR RHYTHM, +S1, +S2. absent: Tachycardia - GI/Abdominal Exam GI & Abdominal Exam: Soft, Normal Bowel Sounds - Extremities Exam Extremities Exam: Normal Capillary Refill, Normal Inspection. absent: Calf Tenderness - Neurological Exam Neurological Exam: Alert, Awake, Oriented x3 - Psychiatric Exam Psychiatric exam: Normal Affect - Skin Skin Exam: Normal Color Assessment and Plan - Assessment and Plan (Free Text) Assessment: UTI -ESBL + -merrem 1g q8(03/13) PICC line (03/17) for outpt Abx -ID consult Dr. Watkins -Abdomen/Pelvis with Contrast (03/11) suspicious for mild diverticulitis, left lateral abdominal wall ventral hernia containing short segment of small bowel without evidence of bowel incarceration or obstruction, 11mm stone in the left renal pelvis with mild-mod hydronephrosis, resolving right hydronephrosis 2/2 distal right ureter stone Nephrolithiasis -CT Abdomen/Pelvis with Contrast (03/11) shows bilateral stones as above -possible UTI infxn 2/2 to obstruction -urologist consult Dr. Casper -pt to f/u w/ [facility] outpt for nephrolithiasis Hypertension Cozaar 100mg Hypothyroidism -synthroid 88mcg Tobacco Abuse -nicotine patch 15mg Prophylaxis -SCD -Protonix 40mg po daily -Florastor 250mg po bid <Kevin Thomas - Last Filed: 03/18/18 20:49> Objective - Vital Signs/Intake and Output Vital Signs (last 24 hours): Temp Pulse Resp BP Pulse Ox 97.9 F 80 20 98/61 L 95 03/18/18 15:25 03/18/18 15:25 03/18/18 15:25 03/18/18 15:25 03/18/18 15:25 - Medications Medications: Current Medications Hydrocortisone (Cortizone 1% Cream) 0 gm TOP BID [facility] Last Admin: 03/18/18 18:03 Dose: 1 applic Levothyroxine Sodium (Synthroid) 88 mcg PO DAILY@0630 [facility] Last Admin: 03/18/18 06:14 Dose: 88 mcg Losartan Potassium (Cozaar) 100 mg PO DAILY [facility] Last Admin: 03/18/18 10:22 Dose: 100 mg Nicotine (Nicoderm Cq) 1 patch TD DAILY [facility] Last Admin: 03/18/18 10:27 Dose: 1 patch Pantoprazole Sodium (Protonix Ec Tab) 40 mg PO Q24H [facility] Last Admin: 03/18/18 18:04 Dose: 40 mg Saccharomyces Boulardii (Florastor) 250 mg PO BID [facility] Last Admin: 03/18/18 18:04 Dose: 250 mg Zolpidem Tartrate (Ambien) 5 mg PO HS [facility] - Labs Labs: 03/18/18 08:27 03/18/18 08:27 PT 12.6 SECONDS (9.7-12.2) H 03/11/18 15:45 INR 1.2 03/11/18 15:45 APTT 34 SECONDS (21-34) 03/11/18 15:45 Attending/Attestation - Attestation I have personally seen and examined this patient.: Yes I have fully participated in the care of the patient.: Yes I have reviewed all pertinent clinical information, including history, physical exam and plan: Yes Notes (Text): 03/18/18 20:29 Patient was seen and examined at 8:30 AM 03/18/18 570 A Also on ROS: Left flank pain wrapping around to the LLQ comes and goes and at times sharp in nature Trouble Sleeping Worried about having to pay for her hospital stay and follow up that needs to occur afterwards for her left kidney stone NO burning/pain with urination NO chest pain NO N/V NO SOB/Wheezing Also on Exam: Right Arm erythema ante cubital area that is at times pruritic (secondary to adhesive) NO CVA tenderness GI: BS x 4, soft, central obesity, NO HSM, NO guarding/rebound tenderness, NT Right Arm PICC Line Assessments: 1). UTI ESBL: repeat Urine Culture 03/12/18 2). Left Renal Pelvis 11 mm Nephrolithiasis and Right Ureter Stone: as per CT Abdomen/Pelvis 3). Mild Diverticulitis: as per CT Abdomen/Pelvis 4). HTN 5). Hypothyroidism 6). Tobacco Use Through assistance of [employer] Technician Veronica [id number] explained the following to the patient: She will need to arrange for follow up through the [facility] so that she may obtain Lithotripsy once she finishes treatment for the ESBL UTI. Although she is visiting from the [place], the clinic will do their best to help her although she will have to pay something for her treatment. Arrangements have already been made for transport to pick her up from her home at 8 AM Tuesday03/20/18 to take her here to [facility] on 3 for treatment with Infanz 1 gram IV via Right Arm PICC Line for a total of 3 days through 03/22/18. Medicine Team: Patient should be discharge after last dose of Meropenem 1 gm IV Q8H on 03/19/18. Kevin Thomas D.O.
[2018-03-18 08:43] LABS: BASO % 0.4 % (0.0-2.0); EOS # 0.1 K/uL (0.0-0.7); EOS % 1.4 % (0.0-4.0); HEMOGLOBIN 12.2 g/dL (11.0-16.0); LYMPH # 2.3 K/uL (1.0-4.3); LYMPH % 51.1 % (20.0-40.0); MEAN CELL VOLUME 87.5 fL (81.0-99.0); MEAN CORPUSCULAR HEMOGLOBIN 29.7 pg (27.0-31.0); MEAN PLATELET VOLUME 8.7 fL (7.2-11.7); MONO # 0.4 K/uL (0.0-0.8); MONO % 9.1 % (0.0-10.0); NEUT # 1.7 K/uL (1.8-7.0); RBC 4.11 Mil/uL (3.80-5.20); RED CELL DISTRIBUTION WIDTH 14.2 % (11.5-14.5); WHITE BLOOD COUNT 4.5 K/uL (4.8-10.8)
[2018-03-18 08:58] LABS: ALB/GLOB RATIO 1.3 (1.0-2.1); ALBUMIN 3.9 g/dL (3.5-5.0); ALT/SGPT 32 U/L (9-52); AST/SGOT 25 U/L (14-36); BLOOD UREA NITROGEN 21 mg/dL (7-17); CALCIUM 9.5 mg/dl (8.6-10.4); GFR AFRICAN-AMERICAN > 60; GFR NON-AFRICAN AMERICAN > 60
[2018-03-18] MEDS: Hydrocortisone 1% Cream (30 GM) TOP SCH ×2 (10:22→18:03)
[2018-03-18] MEDS: Saccharomyces Boulardi 250 mg Cap PO SCH ×2 (10:23→18:04)
[2018-03-18] MEDS: Pantoprazole 40 mg EC Tab PO SCH (18:04)
[2018-03-19] MEDS: Meropenem 1 GM in Sodium Chloride 0.9% 100 ML IVPB SCH ×2 (03:59→13:40)
[2018-03-19] MEDS: Levothyroxine 88 MCG TAB PO SCH (05:59)
[2018-03-19 08:26] LABS: BASO % 0.5 % (0.0-2.0); EOS # 0.1 K/uL (0.0-0.7); EOS % 1.5 % (0.0-4.0); LYMPH # 2.1 K/uL (1.0-4.3); LYMPH % 44.4 % (20.0-40.0); MEAN CELL VOLUME 87.3 fL (81.0-99.0); MEAN CORPUSCULAR HGB CONC 35.5 g/dL (33.0-37.0); MEAN PLATELET VOLUME 8.9 fL (7.2-11.7); MONO # 0.4 K/uL (0.0-0.8); MONO % 8.2 % (0.0-10.0); NEUT # 2.1 K/uL (1.8-7.0); NEUT % 45.4 % (50.0-75.0); RBC 3.88 Mil/uL (3.80-5.20); RED CELL DISTRIBUTION WIDTH 14.2 % (11.5-14.5); WHITE BLOOD COUNT 4.7 K/uL (4.8-10.8)
[2018-03-19 08:41] LABS: ALB/GLOB RATIO 1.3 (1.0-2.1); ALBUMIN 3.8 g/dL (3.5-5.0); ALT/SGPT 29 U/L (9-52); AST/SGOT 19 U/L (14-36); BLOOD UREA NITROGEN 21 mg/dL (7-17); CALCIUM 9.5 mg/dl (8.6-10.4); GFR AFRICAN-AMERICAN > 60; GFR NON-AFRICAN AMERICAN > 60
[2018-03-19] MEDS: Saccharomyces Boulardi 250 mg Cap PO SCH (09:26)
[2018-03-19] MEDS: Hydrocortisone 1% Cream (30 GM) TOP SCH (09:26)
--- NOTE | 2018-03-19 10:53 | CP.PCM.DIS ---
Provider - Provider Date of Admission: 03/11/18 18:08 Attending physician: Chele Mendoza MD Consults: Dr Watkins ~ ID Dr Casper ~ Urology Time Spent in preparation of Discharge (in minutes): 29 Hospital Course - Lab Results Lab Results: Micro Results 03/11/18 20:00 Blood-Venous Blood Culture - Final NO GROWTH AFTER 5 DAYS 03/11/18 20:00 Blood-Venous Gram Stain - Final TEST NOT PERFORMED 03/11/18 19:30 Blood-Venous Blood Culture - Final NO GROWTH AFTER 5 DAYS 03/11/18 19:30 Blood-Venous Gram Stain - Final TEST NOT PERFORMED 03/11/18 16:57 Urine,Clean Catch Urine Culture - Final Escherichia Coli 03/12/18 08:10 Urine,Catheterized Urine Culture - Final No Growth (<1,000 CFU/ML) Most Recent Lab Values WBC 4.7 K/uL (4.8-10.8) L 03/19/18 08:07 RBC 3.88 Mil/uL (3.80-5.20) 03/19/18 08:07 Hgb 12.0 g/dL (11.0-16.0) 03/19/18 08:07 Hct 33.8 % (34.0-47.0) L 03/19/18 08:07 MCV 87.3 fL (81.0-99.0) 03/19/18 08:07 MCH 31.0 pg (27.0-31.0) 03/19/18 08:07 MCHC 35.5 g/dL (33.0-37.0) 03/19/18 08:07 RDW 14.2 % (11.5-14.5) 03/19/18 08:07 Plt Count 193 K/uL (130-400) 03/19/18 08:07 MPV 8.9 fL (7.2-11.7) 03/19/18 08:07 Neut % (Auto) 45.4 % (50.0-75.0) L 03/19/18 08:07 Lymph % (Auto) 44.4 % (20.0-40.0) H 03/19/18 08:07 [place] % (Auto) 8.2 % (0.0-10.0) 03/19/18 08:07 Eos % (Auto) 1.5 % (0.0-4.0) 03/19/18 08:07 Baso % (Auto) 0.5 % (0.0-2.0) 03/19/18 08:07 Neut # (Auto) 2.1 K/uL (1.8-7.0) 03/19/18 08:07 Lymph # (Auto) 2.1 K/uL (1.0-4.3) 03/19/18 08:07 [place] # (Auto) 0.4 K/uL (0.0-0.8) 03/19/18 08:07 Eos # (Auto) 0.1 K/uL (0.0-0.7) 03/19/18 08:07 Baso # (Auto) 0.0 K/uL (0.0-0.2) 03/19/18 08:07 PT 12.6 SECONDS (9.7-12.2) H 03/11/18 15:45 INR 1.2 03/11/18 15:45 APTT 34 SECONDS (21-34) 03/11/18 15:45 Sodium 140 mmol/L (132-148) 03/19/18 08:07 Potassium 4.0 mmol/L (3.6-5.2) 03/19/18 08:07 Chloride 103 mmol/L (98-107) 03/19/18 08:07 Carbon Dioxide 27 mmol/L (22-30) 03/19/18 08:07 Anion Gap 14 (10-20) 03/19/18 08:07 BUN 21 mg/dL (7-17) H 03/19/18 08:07 Creatinine 0.8 mg/dL (0.7-1.2) 03/19/18 08:07 Est GFR ( Amer) > 60 03/19/18 08:07 Est GFR (Non-Af Amer) > 60 03/19/18 08:07 Random Glucose 86 mg/dL (65-105) 03/19/18 08:07 Calcium 9.5 mg/dl (8.6-10.4) 03/19/18 08:07 Phosphorus 3.0 mg/dL (2.5-4.5) 03/19/18 08:07 Magnesium 1.9 mg/dL (1.6-2.3) 03/19/18 08:07 Total Bilirubin 0.4 mg/dL (0.2-1.3) 03/19/18 08:07 AST 19 U/L (14-36) 03/19/18 08:07 ALT 29 U/L (9-52) 03/19/18 08:07 Alkaline Phosphatase 67 U/L (38-126) 03/19/18 08:07 Troponin I < 0.0120 ng/mL (0.00-0.120) 03/11/18 15:45 Total Protein 6.8 g/dL (6.3-8.3) 03/19/18 08:07 Albumin 3.8 g/dL (3.5-5.0) 03/19/18 08:07 Globulin 2.9 gm/dL (2.2-3.9) 03/19/18 08:07 Albumin/Globulin Ratio 1.3 (1.0-2.1) 03/19/18 08:07 Lipase 117 U/L (23-300) 03/11/18 15:45 Procalcitonin < 0.05 NG/ML (0.19-0.49) L 03/12/18 08:10 Free T4 1.51 ng/dL (0.78-2.19) 03/12/18 07:16 TSH 3rd Generation 0.53 mIU/L (0.46-4.68) 03/12/18 07:16 Urine Color Straw (YELLOW) 03/12/18 08:10 Urine Clarity Clear (Clear) 03/12/18 08:10 Urine pH 7.0 (5.0-8.0) 03/12/18 08:10 Ur Specific [place] 1.012 (1.003-1.030) 03/12/18 08:10 Urine Protein Negative mg/dL (NEGATIVE) 03/12/18 08:10 Urine Glucose (UA) Normal mg/dL (Normal) 03/12/18 08:10 Urine Ketones Negative mg/dL (NEGATIVE) 03/12/18 08:10 Urine Blood Negative (NEGATIVE) 03/12/18 08:10 Urine Nitrate Negative (NEGATIVE) 03/12/18 08:10 Urine Bilirubin Negative (NEGATIVE) 03/12/18 08:10 Urine Urobilinogen Normal mg/dL (0.2-1.0) 03/12/18 08:10 Ur Leukocyte Esterase 3+ Yeny/uL (Negative) H 03/12/18 08:10 Urine WBC (Auto) 15 /hpf (0-5) H 03/12/18 08:10 Urine RBC (Auto) 3 /hpf (0-3) 03/12/18 08:10 Urine WBC Clumps (Auto) Few /hpf (NONE) H 03/11/18 15:45 Ur Squamous Epith Cells < 1 /hpf (0-5) 03/12/18 08:10 Urine Bacteria Occ (<OCC) H 03/12/18 08:10 Stool Occult Blood Negative (NEGATIVE) 03/17/18 12:42 - Hospital Course Hospital Course: This is a very nice 68 year old female who has been through quite a bit. [place] The patient has a history of HTN, hypothyroid and recently a history of a colonic resection two years ago. She was admitted on 03/11 due to flank pain and it appears that she was initially concerned for a GI problem due to her history of colonic problems. The CT on 03/12/2018 suggested she maybe having mild diverticulitis - however per review of the notes she did not have abdominal pain but only flank pain. The CT scan also showed that the patient did have 11 mm stone in the left renal pelvis. A UA revealed she likely had a UTI and the urine culture returned showing she had at ESBL + E coli found. She required IV abx and blood cultures were done which were negative. She has been on IV meropenom Q8hrs on 03/13 and has remained on it since then A repeat urine culture was also done and was negative as well. Today 03/19 she felt well enough to walk around the hallway repeatedly with me during exam. She did not need assistance when walking around. She denied abdominal pain, denied flank pain, denied fevers and chills. The patient has a PICC Line and will be returning tomorrow for IV abx here at [facility] infusion center for several more days of IV abx. The patient should also follow up with the [facility] clinic for follow up blood work and urine studies. With reguard to the 11mm renal pelvis stone this would probably have to be addressed outpatient however this maybe difficult to arrange since she is only here in the [place] visiting and does not have insurance. From the initial resident HPI " Ms. Vidal is a 68 year old female PMH hypertension, hypothyroid, diverticulitis with colon resection complaining today of left lower quadrant pain x1 week. She began feeling the pain 1 week ago as an intermittent dull pain. It worsened to the point where she was bed bound yesterday, and then worsened at night when it became sharp. It's a squeezing pain the radiates to the back, worse after eating, and better if she applies pressure. Episodes last 5-10 minutes with varying number of episodes per day which she rates it 8/10 at its worst. She arrived from the [facility] on 12/28/17 and was seen at the [facility] ED 01/24/18 for a UTI which grew out E. Coli; she finished the week long course of Bactrim she was given. She admits chills, weakness, fatigue, chest pain, tachycardia, nausea during episodes of pain. She also notes that she has to strain in order to make bowel movements happen, although she admits to them in regular frequency. Denies fever , headache, dizziness, lightheadedness, changes in vision or hearing, sore throat, dysphasia, odynophagia, shortness of breath, diarrhea, back pain, swelling of hands or feet, changes in weight, changes in appetite." Discharge Exam - Head Exam Head Exam: ATRAUMATIC, NORMAL INSPECTION, NORMOCEPHALIC - Eye Exam Eye Exam: EOMI, Normal appearance Pupil Exam: NORMAL ACCOMODATION - ENT Exam ENT Exam: Mucous Membranes Moist - Respiratory Exam Respiratory Exam: NORMAL BREATHING PATTERN, UNREMARKABLE - Cardiovascular Exam Cardiovascular Exam: REGULAR RHYTHM - GI/Abdominal Exam GI & Abdominal Exam: Normal Bowel Sounds, Unremarkable. absent: Tenderness - Neurological Exam Neurological exam: Alert, Oriented x3 - Psychiatric Exam Psychiatric exam: Normal Affect, Normal Mood - Skin Skin Exam: Normal Color, Warm Discharge Plan - Follow Up Plan Condition: FAIR Disposition: HOME/ ROUTINE Instructions: Kidney Infection, Peripherally-Inserted Central Catheter, Diverticulitis (DC), Levothyroxine, Losartan Additional Instructions: Patient is to followup at infusion center for the next 8 days to receive Invanz 1g IV daily, #8 doses. Patient is instructed to continue the following medications upon discharge: Cozaar 100mg once by mouth daily, Synthroid 88mcg once by mouth daily. Patient is educated to take blood pressure measurements at home prior to taking Cozaar. Patient is instructed not to take Cozaar if systolic blood pressure <110 or HR<60. Patient should return to hospital if symptoms recur or worsen. Patient understands and agrees to the plan above. El paciente debe realizar un seguimiento en el centro de infusin [facility] los pr ximos 8 hernández para recibir Invanz 1g IV al da, dosis # 8. El paciente recibe instrucciones de continuar los siguientes medicamentos al momento del taras: Cozaar 100 mg miles vez por va oral al da, Synthroid 88mcg miles vez por va oral al da. El paciente es educado para carlos mediciones de la presin arterial en casa antes de carlos Cozaar. El paciente recibe instrucciones de no carlos Cozaar si la presin arterial sistlica es inferior a 110 o la frecuencia cardaca es inferior a 60. El paciente debe regresar al hospital si los sntomas recurren o empeoran. El paciente comprende y acepta el plan anterior. Referrals: Alcon Casper MD [Staff Provider] - Chad Watkins MD [Staff Provider] -
[2018-03-19 13:04] VITALS: BP 122/82; PULSE 89; TEMP 98.1; O2SAT 99
[2018-03-19] MEDS ORDERED: Pneumoc 13 Val Conjugate Vaccine Inj IM ONE (14:58)
[2018-03-19] MEDS ORDERED: Pneumococcal 23-Valent Vaccine IM ONE (15:13)
== END 2018-03-19 15:27 | disposition home or self-care (01) | DRG 324 ==
LOC: C.ER 14:44 → C.9E 18:08 → C.3T 18:29 → C.5S 03-13 14:33
PROVIDERS: ADMIT Internal Medicine; ATTEND Internal Medicine
DX: N13.2 Hydronephrosis with renal and ureteral calculous obstruction (principal); N39.0 Urinary tract infection, site not specified; K57.92 Diverticulitis of intestine, part unspecified, without perforation or abscess without bleeding; K59.00 Constipation, unspecified; L29.9 Pruritus, unspecified; I10 Essential (primary) hypertension; F17.210 Nicotine dependence, cigarettes, uncomplicated; E03.9 Hypothyroidism, unspecified; B96.20 Unspecified Escherichia coli [E. coli] as the cause of diseases classified elsewhere; E11.9 Type 2 diabetes mellitus without complications; Z16.12 Extended spectrum beta lactamase (ESBL) resistance; Z86.73 Personal history of transient ischemic attack (TIA), and cerebral infarction without residual deficits; Z87.442 Personal history of urinary calculi; Z90.49 Acquired absence of other specified parts of digestive tract